=== PATIENT | female | born 1995 | race Caucasian/White ===

== ENCOUNTER 2019-05-29 13:05 | Emergency (ER) | payer MEDICAID, OTHER ==
--- NOTE | 2019-05-29 13:19 | EDM.PDOC ---
ED HPI GENERAL MEDICAL PROBLEM - General Chief Complaint: Upper Extremity Injury/Pain Stated Complaint: RIGHT WRIST INJURY Time Seen by Provider: 05/29/19 13:16 Source of Information: Reports: Patient History Limitations: Reports: No Limitations - History of Present Illness INITIAL COMMENTS - FREE TEXT/NARRATIVE: Patient's unfortunate 23-year-old obese female who presents with department today with complaint of right wrist pain. Patient reports she was in her normal state of health approximately 20 minutes prior to arrival when she slipped on a wet floor at work and fell backwards onto an outstretched hand. Since that time she has pain to her right first metacarpal and carpals pain is worse with range of motion or palpation improves with rest does not alleviate. Patient has no tenderness over her wrist or neurovascular is intact - Related Data Allergies Allergy/AdvReac Type Severity Reaction Status Date / Time adhesive Allergy Blisters Verified 05/29/19 13:19 benzocaine Allergy Blisters Verified 05/29/19 13:19 hydrocodone [From Vicodin] Allergy Vomiting Verified 05/29/19 13:19 iodine Allergy Vomiting Verified 05/29/19 13:19 morphine Allergy Itching Verified 05/29/19 13:19 promethazine [From Phenergan] Allergy Seizure Verified 05/29/19 13:19 Home Meds: Home Meds ARIPiprazole [Abilify] 15 mg PO DAILY 05/01/19 [History] Ondansetron [Zofran ODT] 4 mg PO Q6H #10 tab.dis 05/01/19 [Rx] Past Medical History - Past Health History Medical/Surgical History: Denies Medical/Surgical History Review of Systems - Review of Systems Review Of Systems: See Below Constitutional: Denies: Chills, Diaphoresis, Fever Musculoskeletal: Reports: Hand Pain, Joint Pain ED EXAM, GENERAL - Physical Exam Exam: See Below Exam Limited By: No Limitations General Appearance: Alert, WD/WN, Mild Distress Ears: Normal External Exam, Normal Canal, Hearing Grossly Normal, Normal TMs Throat/Mouth: Normal Inspection, Normal Lips, Normal Teeth, Normal Gums, Normal Oropharynx, Normal Voice, No Airway Compromise Head: Atraumatic, Normocephalic Neck: Normal Inspection, Supple, Non-Tender, Full Range of Motion Respiratory/Chest: No Respiratory Distress, Lungs Clear, Normal Breath Sounds, No Accessory Muscle Use, Chest Non-Tender Cardiovascular: Normal Peripheral Pulses, Regular Rate, Rhythm, No Edema, No Gallop, No JVD, No Murmur, No Rub GI/Abdominal: Normal Bowel Sounds, Soft, Non-Tender, No Organomegaly, No Distention, No Abnormal Bruit, No Mass Extremities: Normal Inspection, Other (Mild tenderness to right first metacarpal into the anatomical snuffbox, distal neurovascular is intact minimal swelling no ecchymosis no tenderness into the radial head) Neurological: Alert Skin Exam: Warm, Dry, No Rash Course - Vital Signs Last Recorded V/S: Last Vital Signs Temp 97.1 F 05/29/19 13:14 Pulse 81 05/29/19 13:14 Resp 14 05/29/19 13:14 BP 131/80 05/29/19 13:14 Pulse Ox 99 05/29/19 13:14 - Orders/Labs/Meds Orders: Active Orders 24 hr Category Date Time Status Wrist Comp Min 3V Rt [CR] Stat Exams 05/29/19 13:16 Ordered DME for Discharge [COMM] Stat Oth 05/29/19 13:31 Ordered - Re-Assessments/Exams Free Text/Narrative Re-Assessment/Exam: 05/29/19 13:32 Right wrist, interpreted by me NAD Departure - Departure Time of Disposition: 13:32 Disposition: Home, Self-Care 01 Clinical Impression: Right wrist sprain Qualifiers: Encounter type: initial encounter Qualified Code(s): S63.501A - Unspecified sprain of right wrist, initial encounter - Discharge Information Instructions: Wrist Sprain, Adult Referrals: PCP,None [Primary Care Provider] - Sonido Harrison MD [Physician] - Forms: ED Department Discharge, ED Return to Work/School Form Additional Instructions: Home, rest, ice, elevate Tylenol or Motrin for pain, return as needed for worsening condition Sepsis Event Note - Focused Exam Vital Signs: Vital Signs Temp Pulse Resp BP Pulse Ox 05/29/19 13:14 97.1 F 81 14 131/80 99 Date Exam was Performed: 05/29/19 Time Exam was Performed: 13:32 - My Orders Last 24 Hours: My Active Orders 05/29/19 13:16 Wrist Comp Min 3V Rt [CR] Stat 05/29/19 13:31 DME for Discharge [COMM] Stat - Assessment/Plan Last 24 Hours: My Active Orders 05/29/19 13:16 Wrist Comp Min 3V Rt [CR] Stat 05/29/19 13:31 DME for Discharge [COMM] Stat
--- NOTE | 2019-05-30 09:18 | CR ---
Right wrist: Five views of the right wrist were obtained which includes a navicular view. Joint spaces are preserved. No acute fracture, dislocation or other bony abnormality is seen. Impression: 1. No abnormality is appreciated on right wrist exam. Diagnostic code #1 This report was dictated in [place] Standard Time
== END 2019-05-29 13:42 | disposition home or self-care (01) ==
LOC: JD.ED 13:05
DX: S63.501A Unspecified sprain of right wrist, initial encounter (principal); E66.9 Obesity, unspecified; Z68.41 Body mass index [BMI] 40.0-44.9, adult; Z88.4 Allergy status to anesthetic agent; Z88.5 Allergy status to narcotic agent; Z88.8 Allergy status to other drugs, medicaments and biological substances; Z91.048 Other nonmedicinal substance allergy status; W01.0XXA Fall on same level from slipping, tripping and stumbling without subsequent striking against object, initial encounter; Y92.89 Other specified places as the place of occurrence of the external cause; Y99.0 Civilian activity done for income or pay
CPT/HCPCS: 73110-26-RT; 73110-RT; 99282; 99283-25

== ENCOUNTER 2019-09-03 13:38 | Emergency (ER) | payer MEDICAID, OTHER ==
[2019-09-03] MEDS ORDERED: Ketorolac 30 MG/ML SDV IVPUSH ONE (15:33)
--- NOTE | 2019-09-03 15:41 | EDM.PDOC ---
ED HPI GENERAL MEDICAL PROBLEM - General Chief Complaint: Abdominal Pain Stated Complaint: FEVER/ABD PAIN Time Seen by Provider: 09/03/19 14:49 Source of Information: Reports: Patient History Limitations: Reports: No Limitations - History of Present Illness INITIAL COMMENTS - FREE TEXT/NARRATIVE: Patient is a 24-year-old female who presents with complaints of sore throat, abdominal pain, low-grade fever, congestion, and one episode of vomiting. She states that the sore throat developed a week ago. It did resolve, however returned yesterday. She states that yesterday she had an upset stomach with "egg burps ". She vomited once last night, however she thinks it was related to the "egg burps ". She states that she had a low-grade temp of 100.1 yesterday, however but has not had any recurrence of temp since that time. She has had no further nausea or vomiting. She has had no diarrhea, however states that she is constipated. Denies any cough or shortness of breath. Patient did verbalize that she did have some dysuria prior to starting her period a couple weeks ago. The dysuria resolved shortly thereafter. Right Abdomen Pain Score (Numeric/FACES): 6 - Related Data Allergies Allergy/AdvReac Type Severity Reaction Status Date / Time adhesive Allergy Blisters Verified 05/29/19 13:19 benzocaine Allergy Blisters Verified 05/29/19 13:19 hydrocodone [From Vicodin] Allergy Vomiting Verified 05/29/19 13:19 iodine Allergy Vomiting Verified 05/29/19 13:19 morphine Allergy Itching Verified 05/29/19 13:19 promethazine [From Phenergan] Allergy Seizure Verified 05/29/19 13:19 Home Meds: Home Meds Benzonatate 200 mg PO TID PRN 09/03/19 [History] buPROPion HCl [Wellbutrin Xl] 300 mg PO DAILY 09/03/19 [History] guaiFENesin/Codeine Phosphate [Guaiatussin AC Liquid] 5 ml PO Q4HR PRN 09/03/19 [History] Past Medical History - Past Health History Medical/Surgical History: Denies Medical/Surgical History [employer] History: Reports: Musculoskeletal History: Reports: Fibromyalgia Neurological History: Reports: Other (See Below) Other Neuro History: pseudo seizure Psychiatric History: Reports: Bipolar, Depression Endocrine/Metabolic History: Reports: Obesity/BMI 30+ - Past Surgical History HEENT Surgical History: Reports: Oral Surgery GI Surgical History: Reports: Cholecystectomy Female Surgical History: Reports: Section Social & Family History - Family History Family Medical History: Noncontributory - Tobacco Use Smoking Status *Q: Current Every Day Smoker Years of Tobacco use: 7 Packs/Tins Daily: 0.3 - Caffeine Use Caffeine Use: Reports: Soda ED ROS GENERAL - Review of Systems Review Of Systems: Comprehensive ROS is negative, except as noted in HPI. ED EXAM, GI/ABD - Physical Exam Exam: See Below Exam Limited By: No Limitations General Appearance: Alert, WD/WN, No Apparent Distress Throat/Mouth: Normal Inspection, Normal Lips, Normal Teeth, Normal Gums, Normal Voice, No Airway Compromise, Other (Oropharynx slightly erythematous) Neck: Normal Inspection, Supple, Non-Tender, Full Range of Motion Respiratory/Chest: No Respiratory Distress, Lungs Clear, Normal Breath Sounds, No Accessory Muscle Use, Chest Non-Tender Cardiovascular: Normal Peripheral Pulses, Regular Rate, Rhythm, No Edema, No Gallop, No JVD, No Murmur, No Rub GI/Abdominal Exam: Normal Bowel Sounds, Soft, No Organomegaly, No Distention, No Abnormal Bruit, No Mass, Pelvis Stable, Tender (Right upper, right lower, periumbilical) Neurological: Alert, Oriented, CN II-XII Intact, Normal Cognition, Normal Gait, Normal Reflexes, No Motor/Sensory Deficits Psychiatric: Normal Affect, Normal Mood Skin Exam: Warm, Dry, Intact, Normal Color, No Rash Course - Vital Signs Last Recorded V/S: Last Vital Signs Temp 97.7 F 09/03/19 14:01 Pulse 78 09/03/19 14:01 Resp 16 09/03/19 14:01 BP 135/86 09/03/19 14:01 Pulse Ox 98 09/03/19 14:01 - Orders/Labs/Meds Orders: Active Orders 24 hr Category Date Time Status CULTURE STREP A CONFIRMATION [RM] Stat Lab 09/03/19 15:10 Results Rapid Strep w/culture conf [STREP SCRN A RAPID W CULT Lab 09/03/19 15:10 Results CONF] [RM] Stat Labs: Laboratory Tests 09/03/19 09/03/19 09/03/19 Range/Units 14:40 14:40 14:40 WBC 8.07 (3.98-10.04) K/mm3 RBC 5.09 (3.98-5.22) M/mm3 Hgb 14.6 (11.2-15.7) gm/dl Hct 45.2 H (34.1-44.9) % MCV 88.8 (79.4-94.8) fl MCH 28.7 (25.6-32.2) pg MCHC 32.3 (32.2-35.5) g/dl RDW Std Deviation 45.1 (36.4-46.3) fL Plt Count 465 H (182-369) K/mm3 MPV 9.5 (9.4-12.3) fl Neutrophils % (Manual) 69 H (40-60) % Band Neutrophils % 0 (0-10) % Lymphocytes % (Manual) 25 (20-40) % Atypical Lymphs % 0 % Monocytes % (Manual) 6 (2-10) % Eosinophils % (Manual) 0 L (0.7-5.8) % Basophils % (Manual) 0 L (0.1-1.2) Platelet Estimate Adequate Plt Morphology Comment Normal RBC Morph Comment Normal Sodium 141 (136-145) mEq/L Potassium 4.2 (3.5-5.1) mEq/L Chloride 107 (98-107) mEq/L Carbon Dioxide 24 (21-32) mEq/L Anion Gap 14.2 (5-15) BUN 13 (7-18) mg/dL Creatinine 0.9 (0.55-1.02) mg/dL Est Cr Clr Drug Dosing 83.23 mL/min Estimated GFR (MDRD) > 60 (>60) mL/min BUN/Creatinine Ratio 14.4 (14-18) Glucose 85 (74-106) mg/dL Calcium 9.4 (8.5-10.1) mg/dL Total Bilirubin 0.4 (0.2-1.0) mg/dL AST 17 (15-37) U/L ALT 35 (14-59) U/L Alkaline Phosphatase 77 (46-116) U/L C-Reactive Protein < 0.2 (<1.0) mg/dL Total Protein 7.8 (6.4-8.2) g/dl Albumin 3.9 (3.4-5.0) g/dl Globulin 3.9 gm/dL Albumin/Globulin Ratio 1.0 (1-2) HCG, Qual Negative (NEGATIVE) Urine Color (Yellow) Urine Appearance (Clear) Urine pH (5.0-8.0) Ur Specific [place] (1.005-1.030) Urine Protein (Negative) Urine Glucose (UA) (Negative) Urine Ketones (Negative) Urine Occult Blood (Negative) Urine Nitrite (Negative) Urine Bilirubin (Negative) Urine Urobilinogen (0.2-1.0) Ur Leukocyte Esterase (Negative) Urine RBC (0-5) /hpf Urine WBC (0-5) /hpf Ur Squamous Epith Cells (0-5) /hpf Urine Bacteria (FEW) /hpf Urine Mucus (FEW) /hpf 09/03/19 Range/Units 16:40 WBC (3.98-10.04) K/mm3 RBC (3.98-5.22) M/mm3 Hgb (11.2-15.7) gm/dl Hct (34.1-44.9) % MCV (79.4-94.8) fl MCH (25.6-32.2) pg MCHC (32.2-35.5) g/dl RDW Std Deviation (36.4-46.3) fL Plt Count (182-369) K/mm3 MPV (9.4-12.3) fl Neutrophils % (Manual) (40-60) % Band Neutrophils % (0-10) % Lymphocytes % (Manual) (20-40) % Atypical Lymphs % % Monocytes % (Manual) (2-10) % Eosinophils % (Manual) (0.7-5.8) % Basophils % (Manual) (0.1-1.2) Platelet Estimate Plt Morphology Comment RBC Morph Comment Sodium (136-145) mEq/L Potassium (3.5-5.1) mEq/L Chloride (98-107) mEq/L Carbon Dioxide (21-32) mEq/L Anion Gap (5-15) BUN (7-18) mg/dL Creatinine (0.55-1.02) mg/dL Est Cr Clr Drug Dosing mL/min Estimated GFR (MDRD) (>60) mL/min BUN/Creatinine Ratio (14-18) Glucose (74-106) mg/dL Calcium (8.5-10.1) mg/dL Total Bilirubin (0.2-1.0) mg/dL AST (15-37) U/L ALT (14-59) U/L Alkaline Phosphatase (46-116) U/L C-Reactive Protein (<1.0) mg/dL Total Protein (6.4-8.2) g/dl Albumin (3.4-5.0) g/dl Globulin gm/dL Albumin/Globulin Ratio (1-2) HCG, Qual (NEGATIVE) Urine Color Yellow (Yellow) Urine Appearance Clear (Clear) Urine pH 6.0 (5.0-8.0) Ur Specific [place] 1.025 (1.005-1.030) Urine Protein Negative (Negative) Urine Glucose (UA) Negative (Negative) Urine Ketones Negative (Negative) Urine Occult Blood Negative (Negative) Urine Nitrite Negative (Negative) Urine Bilirubin Negative (Negative) Urine Urobilinogen 0.2 (0.2-1.0) Ur Leukocyte Esterase Negative (Negative) Urine RBC Not seen (0-5) /hpf Urine WBC 0-5 (0-5) /hpf Ur Squamous Epith Cells 5-10 H (0-5) /hpf Urine Bacteria Not seen (FEW) /hpf Urine Mucus Not seen (FEW) /hpf Meds: Medications Discontinued Medications Generic Name Dose Route Start Last Admin Trade Name Freq PRN Reason Stop Dose Admin Sodium Chloride 1,000 mls @ 999 mls/hr 09/03/19 15:45 09/03/19 15:39 Normal Saline IV 999 mls/hr ASDIRECTED RODOLFO Administration Ketorolac Tromethamine 30 mg 09/03/19 15:33 09/03/19 15:39 Toradol IVPUSH 09/03/19 15:34 30 mg ONETIME ONE Administration Magnesium Citrate 296 ml 09/03/19 17:08 09/03/19 17:31 Citrate Of Magnesia PO 09/03/19 17:09 296 ml ONETIME ONE Administration - Re-Assessments/Exams Free Text/Narrative Re-Assessment/Exam: 09/03/19 17:11 Patient's work-up was grossly unremarkable. There is some increased stool throughout her colon which would correlate with her feeling constipated and may be contributing to her pain. Her WBCs were normal. CRP was normal. Electrolytes are normal. Urinalysis was negative for infection. She does feel better after a liter of fluids and the Toradol. Discussed the option of a CT scan and she is in agreement to defer this for now. She will go home with some magnesium citrate and a note for work. Discussed that if her symptoms do not improve in 24 hours or if she experiences any worsening symptoms, she should return. She is in agreement with this plan. Discharge instructions as documented. Departure - Departure Time of Disposition: 17:16 Disposition: Home, Self-Care 01 Condition: Fair Clinical Impression: Abdominal pain Qualifiers: Abdominal location: generalized Qualified Code(s): R10.84 - Generalized abdominal pain - Discharge Information *PRESCRIPTION DRUG MONITORING PROGRAM REVIEWED*: No *COPY OF PRESCRIPTION DRUG MONITORING REPORT IN PATIENT CHANDAN: No Instructions: Abdominal Pain, Adult, [id number] Referrals: Gracie Blount PA-C [Primary Care Provider] - Forms: ED Department Discharge, ED Return to Work/School Form Additional Instructions: You were seen in the emergency department today for abdominal pain. Your work- up included blood work, urinalysis, strep screen, and a x-ray of your abdomen. Your work-up was found to be normal, however, as we discussed, there is increased stool throughout your colon. This may be contributing to your pain. There are no signs in your work-up to suggest appendicitis at this time, however , as we discussed, if your symptoms do not improve over the next 24 hours or you experience any worsening symptoms, we would want you to return to the emergency department. You have been sent home with a bottle of magnesium citrate. Take this when you get home. This should produce a number of bowel movements some of which may be loose. Sepsis Event Note - Evaluation Sepsis Screening Result: No Definite Risk - Focused Exam Vital Signs: Vital Signs Temp Pulse Resp BP Pulse Ox 09/03/19 14:01 97.7 F 78 16 135/86 98 Date Exam was Performed: 09/03/19 Time Exam was Performed: 21:33 - My Orders Last 24 Hours: My Active Orders 09/03/19 15:10 CULTURE STREP A CONFIRMATION [RM] Stat Rapid Strep w/culture conf [STREP SCRN A RAPID W CULT CONF] [] Stat - Assessment/Plan Last 24 Hours: My Active Orders 09/03/19 15:10 CULTURE STREP A CONFIRMATION [] Stat Rapid Strep w/culture conf [STREP SCRN A RAPID W CULT CONF] [] Stat
[2019-09-03] MEDS ORDERED: Sodium Chloride 0.9% 1,000 ML IV SCH (15:45)
[2019-09-03] MEDS ORDERED: Magnesium Citrate Solution 296 ML Bottle PO ONE (17:08)
--- NOTE | 2019-09-03 17:15 | CR ---
Abdomen: Supine and upright views the abdomen were obtained. Scattered gas is noted within nondilated small bowel. Scattered gas and stool is noted within the colon. Findings at this point appear nonobstructive and within normal limits. No free air is seen. Priors cholecystectomy is noted. Bony structures are within normal limits for the patient's age. Impression: 1. Nothing acute is seen on 2 view abdominal x-ray. Diagnostic code #2 Study was dictated in MDT
== END 2019-09-03 17:35 | disposition home or self-care (01) ==
LOC: JD.ED 13:38
DX: R10.84 Generalized abdominal pain (principal); E66.9 Obesity, unspecified; Z68.39 Body mass index [BMI] 39.0-39.9, adult; F17.210 Nicotine dependence, cigarettes, uncomplicated; F31.9 Bipolar disorder, unspecified; Z91.09 Other allergy status, other than to drugs and biological substances; Z88.5 Allergy status to narcotic agent; Z88.8 Allergy status to other drugs, medicaments and biological substances; Z79.899 Other long term (current) drug therapy
CPT/HCPCS: 36415; 74019; 80053; 81001; 84703; 85007; 85027; 86140; 87081; 87430; 96361; 96374; 99284; A9270; J1885; J7030; 99283

== ENCOUNTER 2019-09-06 14:11 | Emergency (ER) | payer MEDICAID, OTHER ==
--- NOTE | 2019-09-06 15:43 | EDM.PDOC ---
ED HPI GENERAL MEDICAL PROBLEM - General Chief Complaint: Gastrointestinal Problem Stated Complaint: RECTAL BLEEDING Time Seen by Provider: 09/06/19 14:37 Source of Information: Reports: Patient History Limitations: Reports: No Limitations - History of Present Illness INITIAL COMMENTS - FREE TEXT/NARRATIVE: Ms. Perez is a very pleasant 24-year-old woman with a past medical history significant for a remote history of peptic ulcer disease, depression, bipolar affective disorder, fibromyalgia, pseudoseizures, and both internal and external hemorrhoids as determined by prior colonoscopies, who, medical records indicate, was seen in this ED on 09/03/2019 for a variety of gastrointestinal issues, including constipation. She was directed to take magnesium citrate. She tells me that she drank less than half of a bottle on Thursday night, which resulted in diarrhea. She now returns to the ED after developing the diarrhea and passing clots on Thursday night, 09/04/2019. She states that her stool is light brown, but there are some black spots on it along with some bright red drops of blood. She states that she is rectal pain, and that she has been feeling lethargic and generally ill. She states that she has been feeling lightheaded when upright, today. She denies recent fever, chills, cough, dyspnea, chest pain, palpitations, urinary symptoms, recent weight gain or weight loss, recent joint aches, headaches, or rashes. Here in the ED, the patient is found to be hemodynamically stable, afebrile, saturating 100% on room air. The patient's PCP is BRENDA Cerda. She does not recall the name of her Psychiatrist. She did not receive an influenza vaccine this season, but agreed to receive one here today. Rectal Pain Score (Numeric/FACES): 4 - Related Data Allergies Allergy/AdvReac Type Severity Reaction Status Date / Time adhesive Allergy Blisters Verified 09/06/19 14:38 benzocaine Allergy Blisters Verified 09/06/19 14:38 hydrocodone [From Vicodin] Allergy Vomiting Verified 09/06/19 14:38 iodine Allergy Vomiting Verified 09/06/19 14:38 morphine Allergy Itching Verified 09/06/19 14:38 promethazine [From Phenergan] Allergy Seizure Verified 09/06/19 14:38 Home Meds: Home Meds buPROPion HCl [Wellbutrin Xl] 300 mg PO DAILY 09/03/19 [History] traZODone HCl [Trazodone HCl] 1 tab PO BEDTIME 09/06/19 [History] Past Medical History Gastrointestinal History: Reports: Hemorrhoids (both internal and external), PUD (remote) Psychiatric History: Reports: Bipolar, Depression, Other (See Below) ( Fibromyalgia, pseudoseizures) Endocrine/Metabolic History: Reports: Obesity/BMI 30+ - Past Surgical History HEENT Surgical History: Reports: Oral Surgery (wisdom teeth extraction) GI Surgical History: Reports: Cholecystectomy (around 2010 or 2011), Colonoscopy (x about 4), EGD (x about 4) Female Surgical History: Reports: Section (x 1) Social & Family History - Family History Family Medical History: Noncontributory - Tobacco Use Smoking Status *Q: Former Smoker Tobacco Use Within Last Twelve Months: Vaping (nicotine) Years of Tobacco use: 3 Packs/Tins Daily: 0.5 Month/Year Tobacco Last Used: Quit 2015 - Caffeine Use Caffeine Use: Reports: None - Alcohol Use Alcohol Use History: No - Recreational Drug Use Recreational Drug Use: Yes Drug Use in Last 12 Months: Yes Recreational Drug Type: Reports: Marijuana/Hashish (last smoked Mar 2019) - Living Situation & Occupation Living situation: Reports: Single, with Significant Other (Fianc), with Family (Son) Occupation: Employed ([employer]) ED ROS GENERAL - Review of Systems Review Of Systems: Comprehensive ROS is negative, except as noted in HPI. ED EXAM, GI/ABD - Physical Exam Exam: See Below Exam Limited By: No Limitations General Appearance: Alert, WD/WN, No Apparent Distress Eyes: Bilateral: Normal Appearance, EOMI Ears: Normal External Exam, Hearing Grossly Normal Nose: Normal Inspection Throat/Mouth: Normal Inspection, Normal Lips, Normal Voice, No Airway Compromise Head: Atraumatic, Normocephalic Neck: Normal Inspection, Full Range of Motion Respiratory/Chest: No Respiratory Distress, Lungs Clear, Normal Breath Sounds, No Accessory Muscle Use Cardiovascular: Normal Peripheral Pulses, Regular Rate, Rhythm, No Edema, No Gallop, No JVD, No Murmur, No Rub GI/Abdominal Exam: Normal Bowel Sounds, Soft, Non-Tender, No Organomegaly, No Distention, No Abnormal Bruit, No Mass (Female) Exam: Deferred Rectal (Female) Exam: Normal Rectal Tone, Bloody Stool (scant - no stool in rectum), Heme + Stool, Hemorrhoids (bilateral small) Back Exam: Normal Inspection, Full Range of Motion, NT Extremities: Normal Inspection, Normal Range of Motion, No Pedal Edema, Normal Capillary Refill Neurological: Alert, Oriented, Normal Cognition, No Motor/Sensory Deficits Psychiatric: Normal Affect Skin Exam: Warm, Dry, Intact, Normal Color, No Rash Course - Vital Signs Last Recorded V/S: Last Vital Signs Temp 36.6 C 09/06/19 14:34 Pulse 87 09/06/19 14:34 Resp 18 09/06/19 18:05 BP 122/75 09/06/19 18:05 Pulse Ox 100 09/06/19 18:05 Orthostatic Blood Pressure [ 117/86 Standing] Orthostatic Blood Pressure [ 126/67 Supine] - Orders/Labs/Meds Labs: Laboratory Tests 09/06/19 09/06/19 Range/Units 15:52 15:52 WBC 9.26 (3.98-10.04) K/mm3 RBC 4.68 (3.98-5.22) M/mm3 Hgb 13.4 (11.2-15.7) gm/dl Hct 41.4 (34.1-44.9) % MCV 88.5 (79.4-94.8) fl MCH 28.6 (25.6-32.2) pg MCHC 32.4 (32.2-35.5) g/dl RDW Std Deviation 44.1 (36.4-46.3) fL Plt Count 428 H (182-369) K/mm3 MPV 9.4 (9.4-12.3) fl Neutrophils % (Manual) 58 (40-60) % Band Neutrophils % 0 (0-10) % Lymphocytes % (Manual) 35 (20-40) % Atypical Lymphs % 1 % Monocytes % (Manual) 6 (2-10) % Eosinophils % (Manual) 0 L (0.7-5.8) % Basophils % (Manual) 0 L (0.1-1.2) Platelet Estimate Adequate RBC Morph Comment Normal Sodium 144 (136-145) mEq/L Potassium 4.2 (3.5-5.1) mEq/L Chloride 108 H (98-107) mEq/L Carbon Dioxide 24 (21-32) mEq/L Anion Gap 16.2 H (5-15) BUN 11 (7-18) mg/dL Creatinine 0.9 (0.55-1.02) mg/dL Est Cr Clr Drug Dosing TNP Estimated GFR (MDRD) > 60 (>60) mL/min BUN/Creatinine Ratio 12.2 L (14-18) Glucose 95 (74-106) mg/dL Calcium 9.3 (8.5-10.1) mg/dL Magnesium 1.9 (1.8-2.4) mg/dl Total Bilirubin 0.2 (0.2-1.0) mg/dL AST 23 (15-37) U/L ALT 50 (14-59) U/L Alkaline Phosphatase 78 (46-116) U/L Total Protein 7.3 (6.4-8.2) g/dl Albumin 3.7 (3.4-5.0) g/dl Globulin 3.6 gm/dL Albumin/Globulin Ratio 1.0 (1-2) Meds: Medications Discontinued Medications Generic Name Dose Route Start Last Admin Trade Name Freq PRN Reason Stop Dose Admin Influenza Virus Vaccine 60 mcg 09/06/19 16:00 09/06/19 16:24 Fluzone Quad [id number] Syringe IM 09/06/19 16:01 60 mcg .ONCE ONE Administration - Re-Assessments/Exams Free Text/Narrative Re-Assessment/Exam: 09/06/19 15:41 On rectal examination, the patient has bilateral very small nonthrombosed hemorrhoids. A scant amount of red stool was on the finger, which is heme positive. I have therefore ordered orthostatics and some blood work. 09/06/19 15:51 The patient is not orthostatic. 09/06/19 17:41 Test results discussed with the patient. As above, the patient is not orthostatic, and she is not anemic. Based on the color of her lower GI bleed, I suspect that her bleeding is from an internal hemorrhoid, especially since she has a history of internal hemorrhoids, but the only way to be certain is via sigmoidoscopy or colonoscopy. For that, I will refer her to the Surgeon. Departure - Departure Time of Disposition: 17:42 Disposition: Home, Self-Care 01 Condition: Good Clinical Impression: Lower GI bleed - Discharge Information *PRESCRIPTION DRUG MONITORING PROGRAM REVIEWED*: Not Applicable *COPY OF PRESCRIPTION DRUG MONITORING REPORT IN PATIENT CHANDAN: Not Applicable Instructions: Rectal Bleeding, [id number] Referrals: Gracie Blount PA-C [Primary Care Provider] - Evangelist Hammond MD [Physician] - Forms: ED Department Discharge Additional Instructions: You were seen in the emergency room after developing blood mixed with your stool. Work-up in the ER included blood work and positional blood pressure checks. Your entire work-up was unremarkable. You are not anemic. Your blood pressure maintained itself between lying and standing. The exact cause of your lower GI bleed is not known. For that, you will need to undergo a sigmoidoscopy or colonoscopy. Please follow-up with the surgeon Dr. Evangelist Hammond at the next available appointment for further evaluation. If any other problems, please do not hesitate to return to the ER. Sepsis Event Note - Evaluation Sepsis Screening Result: No Definite Risk - Focused Exam Date Exam was Performed: 09/07/19 Time Exam was Performed: 20:33
[2019-09-06] MEDS ORDERED: FLU Vacc QS2019-20(6MOS+)/PF 60 MCG/0.5 ML SYRINGE IM ONE (16:00)
== END 2019-09-06 18:05 | disposition home or self-care (01) ==
LOC: JD.ED 14:11
DX: K92.2 Gastrointestinal hemorrhage, unspecified (principal); Z23 Encounter for immunization; F32.9 Major depressive disorder, single episode, unspecified; E66.9 Obesity, unspecified; Z87.891 Personal history of nicotine dependence; Z88.8 Allergy status to other drugs, medicaments and biological substances; Z91.048 Other nonmedicinal substance allergy status; Z88.5 Allergy status to narcotic agent; Z79.899 Other long term (current) drug therapy
CPT/HCPCS: 36415; 80053; 83735; 85007; 85027; 90686; 99283; 99283-25; G0008

== ENCOUNTER 2019-10-21 17:35 | Emergency (ER) | payer MEDICAID ==
--- NOTE | 2019-10-21 18:14 | EDM.PDOC ---
ED HPI GENERAL MEDICAL PROBLEM - General Chief Complaint: Gastrointestinal Problem Stated Complaint: RECTAL BLEEDING Time Seen by Provider: 10/21/19 17:53 Source of Information: Reports: Patient, Old Records, RN Notes Reviewed History Limitations: Reports: No Limitations - History of Present Illness INITIAL COMMENTS - FREE TEXT/NARRATIVE: Patient is a 24-year-old female who presents to the ED for rectal bleeding. Patient notes she has a history of external and internal hemorrhoids. She was seen in this ER roughly a month ago for this, and did follow-up with the surgeon , and had a procedure done by Dr. Hammond on September 13. Patient notes that last night she started having a "major flare" of her hemorrhoids. She states that she went to the bathroom, and when she wiped she noticed some clot-like material with dark-colored blood noted on the toilet paper as well. She thought maybe she was having her period or starting her period, this was not the case. Patient states that she is not having any dizziness or lightheadedness with standing. Patient states that she did try to get a hold of Dr. Hammond, but his nurse did not call her back as this was 4:30 PM on a Thursday night. Patient is denying any other sort of sick-like symptoms, fever/ chills, cough/shortness of breath, chest pain, nausea/vomiting/diarrhea. Patient notes that she has had her gallbladder taken out, still has issues with chronic loose stools and/or diarrhea at times. She has tried to change dietary and lifestyle changes as well, and states these are going well for her. - Related Data Allergies Allergy/AdvReac Type Severity Reaction Status Date / Time adhesive Allergy Blisters Verified 09/06/19 14:38 benzocaine Allergy Blisters Verified 09/06/19 14:38 hydrocodone [From Vicodin] Allergy Vomiting Verified 09/06/19 14:38 iodine Allergy Vomiting Verified 09/06/19 14:38 latex Allergy Hives Verified 10/21/19 17:58 morphine Allergy Itching Verified 09/06/19 14:38 promethazine [From Phenergan] Allergy Seizure Verified 09/06/19 14:38 Home Meds: Home Meds buPROPion HCL [Wellbutrin Xl] 300 mg PO DAILY 09/03/19 [History] Hydrocortisone Acetate [Anusol-Hc] 25 mg RC BID #28 supp.rect 10/21/19 [Rx] Hydrocortisone [Anusol-Hc] 30 gm TP BID 5 Days #1 tube 10/21/19 [Rx] Past Medical History Gastrointestinal History: Reports: Hemorrhoids (internal and external), PUD LEDGE MAN History: Reports: Musculoskeletal History: Reports: Fibromyalgia Neurological History: Reports: Other (See Below) Other Neuro History: pseudo seizure Psychiatric History: Reports: Bipolar, Depression Endocrine/Metabolic History: Reports: Obesity/BMI 30+ - Past Surgical History HEENT Surgical History: Reports: Oral Surgery GI Surgical History: Reports: Cholecystectomy, Colonoscopy, EGD Female Surgical History: Reports: Section Social & Family History - Family History Family Medical History: Noncontributory - Tobacco Use Smoking Status *Q: Former Smoker Used Tobacco, but Quit: Yes Month/Year Tobacco Last Used: 2019 - Caffeine Use Caffeine Use: Reports: None - Living Situation & Occupation Living situation: Reports: Single, with Significant Other (Fianc), with Family (Son) Occupation: Employed ([employer]) ED ROS GENERAL - Review of Systems Review Of Systems: Comprehensive ROS is negative, except as noted in HPI. ED EXAM, GI/ABD - Physical Exam Exam: See Below Exam Limited By: No Limitations General Appearance: Alert, WD/WN, No Apparent Distress Eyes: Bilateral: Normal Appearance Respiratory/Chest: No Respiratory Distress, Lungs Clear, Normal Breath Sounds, No Accessory Muscle Use, Chest Non-Tender Cardiovascular: Normal Peripheral Pulses, Regular Rate, Rhythm, No Murmur GI/Abdominal Exam: Normal Bowel Sounds, Soft, Non-Tender, No Distention, No Mass Rectal (Female) Exam: Deferred, Bloody Stool (reported per patient), Hemorrhoids (few external and also internal hemorrhoids, noted by patient) Extremities: Normal Inspection, Normal Capillary Refill Neurological: Alert, Oriented, Normal Cognition, No Motor/Sensory Deficits Psychiatric: Normal Affect, Normal Mood Skin Exam: Warm, Dry, Intact, Normal Color, No Rash Course - Vital Signs Last Recorded V/S: Last Vital Signs Temp 97.4 F 10/21/19 17:53 Pulse 78 10/21/19 17:53 Resp 16 10/21/19 17:53 BP 137/89 10/21/19 17:53 Pulse Ox 100 10/21/19 17:53 - Orders/Labs/Meds Orders: Active Orders 24 hr Category Date Time Status CBC WITH AUTO DIFF [HEME] Stat Lab 10/21/19 17:58 Ordered Labs: Laboratory Tests 10/21/19 10/21/19 Range/Units 18:27 18:27 WBC 10.91 H (3.98-10.04) K/mm3 RBC 4.79 (3.98-5.22) M/mm3 Hgb 13.9 (11.2-15.7) gm/dl Hct 42.3 (34.1-44.9) % MCV 88.3 (79.4-94.8) fl MCH 29.0 (25.6-32.2) pg MCHC 32.9 (32.2-35.5) g/dl RDW Std Deviation 45.0 (36.4-46.3) fL Plt Count 442 H (182-369) K/mm3 MPV 9.5 (9.4-12.3) fl Neut % (Auto) 67.8 (34.0-71.1) % Lymph % (Auto) 25.2 (19.3-51.7) % [place] % (Auto) 6.0 (4.7-12.5) % Eos % (Auto) 0.5 L (0.7-5.8) Baso % (Auto) 0.3 (0.1-1.2) % Neut # (Auto) 7.41 H (1.56-6.13) K/mm3 Lymph # (Auto) 2.75 (1.18-3.74) K/mm3 [place] # (Auto) 0.65 H (0.24-0.36) K/mm3 Eos # (Auto) 0.05 (0.04-0.36) K/mm3 Baso # (Auto) 0.03 (0.01-0.08) K/mm3 Sodium 141 (136-145) mEq/L Potassium 4.0 (3.5-5.1) mEq/L Chloride 104 (98-107) mEq/L Carbon Dioxide 24 (21-32) mEq/L Anion Gap 17.0 H (5-15) BUN 15 (7-18) mg/dL Creatinine 0.8 (0.55-1.02) mg/dL Est Cr Clr Drug Dosing 93.64 mL/min Estimated GFR (MDRD) > 60 (>60) mL/min BUN/Creatinine Ratio 18.8 H (14-18) Glucose 83 (74-106) mg/dL Calcium 8.9 (8.5-10.1) mg/dL Total Bilirubin 0.3 (0.2-1.0) mg/dL AST 11 L (15-37) U/L ALT 31 (14-59) U/L Alkaline Phosphatase 73 (46-116) U/L Total Protein 7.7 (6.4-8.2) g/dl Albumin 3.8 (3.4-5.0) g/dl Globulin 3.9 gm/dL Albumin/Globulin Ratio 1.0 (1-2) - Re-Assessments/Exams Free Text/Narrative Re-Assessment/Exam: 10/21/19 18:15 Patient presents to the ED for the evaluation of her rectal bleeding secondary to hemorrhoids. Will obtain CBC and CMP to make sure she has no sign of anemia , but will likely discharge her home with Anusol suppositories and hydrocortisone cream to help calm down both the external and internal hemorrhoids. Patient is okay with this plan at this time. 10/21/19 19:00 Labs have resulted, patient is not anemic and there are no other worrisome abnormalities noted on the metabolic panel. Patient will be discharged home with general recommendations and medicines noted above. Departure - Departure Time of Disposition: 19:00 Disposition: Home, Self-Care 01 Condition: Good Clinical Impression: Rectal bleeding, Internal and external bleeding hemorrhoids - Discharge Information *PRESCRIPTION DRUG MONITORING PROGRAM REVIEWED*: No *COPY OF PRESCRIPTION DRUG MONITORING REPORT IN PATIENT CHANDAN: No Prescriptions: Hydrocortisone [Anusol-Hc] 30 gm TP BID 5 Days #1 tube Hydrocortisone Acetate [Anusol-Hc] 25 mg RC BID #28 supp.rect Instructions: Hemorrhoids Referrals: Gracie Blount PA-C [Primary Care Provider] - Forms: ED Department Discharge Additional Instructions: You were evaluated in the ED for your rectal bleeding secondary to your hemorrhoids. You did have some labs drawn today, and this demonstrated no acute abnormalities , you are not anemic at today's visit. You were given a prescription for Anusol suppositories, and Anusol cream. Please use 1 suppository inserted into rectum 2 times a day to help with the internal hemorrhoids, and use the cream to the rectum 2 times a day to help with the external hemorrhoids. Recommend you follow-up with your surgeon on Thursday, for follow-up sometime early next week. Please return to the ER at any time if symptoms change or worsen. Sepsis Event Note - Evaluation Sepsis Screening Result: No Definite Risk - Focused Exam Vital Signs: Vital Signs Temp Pulse Resp BP Pulse Ox 10/21/19 17:53 97.4 F 78 16 137/89 100 Date Exam was Performed: 10/21/19 Time Exam was Performed: 19:00 - My Orders Last 24 Hours: My Active Orders 10/21/19 17:58 CBC WITH AUTO DIFF [HEME] Stat - Assessment/Plan Last 24 Hours: My Active Orders 10/21/19 17:58 CBC WITH AUTO DIFF [HEME] Stat
== END 2019-10-21 19:15 | disposition home or self-care (01) ==
LOC: JD.ED 17:35
DX: K64.4 Residual hemorrhoidal skin tags (principal); K64.8 Other hemorrhoids; K62.5 Hemorrhage of anus and rectum; F31.9 Bipolar disorder, unspecified; Z87.891 Personal history of nicotine dependence; E66.9 Obesity, unspecified; Z68.39 Body mass index [BMI] 39.0-39.9, adult; Z91.048 Other nonmedicinal substance allergy status; Z88.5 Allergy status to narcotic agent; Z88.8 Allergy status to other drugs, medicaments and biological substances; Z88.6 Allergy status to analgesic agent; Z91.040 Latex allergy status; Z91.09 Other allergy status, other than to drugs and biological substances
CPT/HCPCS: 36415; 80053; 85025; 99283

== ENCOUNTER 2019-11-03 12:00 | Emergency (ER) | payer MEDICAID ==
--- NOTE | 2019-11-03 12:49 | EDM.PDOC ---
ED HPI GENERAL MEDICAL PROBLEM - General Chief Complaint: Headache Stated Complaint: HEADACHE FOR 6 HRS Time Seen by Provider: 11/03/19 12:39 - History of Present Illness INITIAL COMMENTS - FREE TEXT/NARRATIVE: 24-year-old female presents the emergency room with a headache. This headache started 6 or 7 hours ago basically she awoke with it. She describes some neck tightness and has pain above her eyes that radiate back to her neck. The patient fell a couple of days ago landing on her right side jerked her neck pretty hard. She is not had any fevers or chills however did not feel well last night. The patient has had migraines in the past this feels much like they have in the past however this headache is worse. Patient has not noticed any extremity weakness no numbness or tingling or changes in neurologic status. The patient does not think she is however her period was very light and about a week late about a week ago. Treatments YACHT RIGGER: Reports: Other (see below) Other Treatments YACHT RIGGER: none Headache Pain Score (Numeric/FACES): 9 - Related Data Allergies Allergy/AdvReac Type Severity Reaction Status Date / Time adhesive Allergy Severe Blisters Verified 11/03/19 12:13 benzocaine Allergy Severe Blisters Verified 11/03/19 12:13 hydrocodone [From Vicodin] Allergy Severe Vomiting Verified 11/03/19 12:13 iodine Allergy Severe Vomiting Verified 11/03/19 12:13 latex Allergy Severe Hives Verified 11/03/19 12:13 morphine Allergy Severe Itching Verified 11/03/19 12:13 promethazine [From Phenergan] Allergy Severe Seizure Verified 11/03/19 12:13 nsaids Allergy Severe stoamch Uncoded 11/03/19 13:04 issues Home Meds: Home Meds buPROPion HCL [Wellbutrin Xl] 300 mg PO DAILY 09/03/19 [History] Past Medical History - Past Health History Medical/Surgical History: Denies Medical/Surgical History Gastrointestinal History: Reports: Hemorrhoids, PUD 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: Musculoskeletal History: Reports: Fibromyalgia Neurological History: Reports: Other (See Below) Other Neuro History: pseudo seizure Psychiatric History: Reports: Bipolar, Depression Endocrine/Metabolic History: Reports: Obesity/BMI 30+ - Past Surgical History HEENT Surgical History: Reports: Oral Surgery GI Surgical History: Reports: Cholecystectomy, Colonoscopy, EGD Female Surgical History: Reports: Section Social & Family History - Family History Family Medical History: Noncontributory - Tobacco Use Smoking Status *Q: Former Smoker Used Tobacco, but Quit: Yes Month/Year Tobacco Last Used: 2019 - Caffeine Use Caffeine Use: Reports: None - Recreational Drug Use Recreational Drug Use: Yes Recreational Drug Type: Reports: Marijuana/Hashish Other Recreational Drug Type: last used Mar 10 2019 - Living Situation & Occupation Living situation: Reports: Single, with Significant Other (Fianc�), with Family (Son) Occupation: Employed ([employer]) ED ROS GENERAL - Review of Systems Review Of Systems: See Below Constitutional: Reports: No Symptoms HEENT: Reports: Other (She has some photophobia) Respiratory: Reports: No Symptoms Cardiovascular: Reports: No Symptoms Endocrine: Reports: No Symptoms GI/Abdominal: Reports: Nausea, Vomiting. Denies: Abdominal Pain, Constipation, Diarrhea : Reports: No Symptoms Musculoskeletal: Reports: No Symptoms Neurological: Reports: Headache. Denies: Confusion, Dizziness, Pre-Existing Deficit, Tremors, Change in Speech, Gait Disturbance Psychiatric: Reports: No Symptoms Hematologic/Lymphatic: Reports: No Symptoms Immunologic: Reports: No Symptoms - Physical Exam Exam: See Below Exam Limited By: No Limitations General Appearance: Alert, No Apparent Distress Eye Exam: Bilateral Eye: EOMI, Normal Inspection, PERRL Ears: Normal External Exam, Normal Canal, Hearing Grossly Normal, Normal TMs Nose: Normal Inspection, Normal Mucosa, No Blood Throat/Mouth: Normal Inspection, Normal Lips, Normal Teeth, Normal Gums, Normal Oropharynx, Normal Voice, No Airway Compromise Head Exam: Atraumatic, Normocephalic Neck: Normal Inspection, Supple, Other (Patient has significant paraspinous muscle tenderness bilaterally with significant discomfort at the insertion of the base of the skull no nuchal rigidity). No: Lymphadenopathy (R), Tender Midline Respiratory/Chest: No Respiratory Distress, Lungs Clear, Normal Breath Sounds Cardiovascular: Regular Rate, Rhythm, No Edema, No Murmur GI/Abdominal: Normal Bowel Sounds, Soft, Non-Tender Neuro Exam (Abbreviated): Other (Cranial nerves II through XII grossly intact all muscle groups the upper and lower extremities are equal and appropriate bilaterally deep tendon reflexes at the brachioradialis and patella tendons are equal bilaterally. Cerebellar testing is entirely within normal limits with [id number] and standing on one leg dragging the inside of the weightbearing leg with a non weightbearing leg) Course - Vital Signs Last Recorded V/S: Last Vital Signs Temp 36.4 C 11/03/19 12:18 Pulse 89 11/03/19 12:18 Resp 20 11/03/19 12:18 BP 120/79 11/03/19 12:18 Pulse Ox 97 11/03/19 12:18 - Orders/Labs/Meds Labs: Laboratory Tests 11/03/19 Range/Units 13:08 HCG, Qual Negative (NEGATIVE) Meds: Medications Discontinued Medications Generic Name Dose Route Start Last Admin Trade Name Jamarq PRN Reason Stop Dose Admin Diphenhydramine HCl 50 mg 11/03/19 12:54 11/03/19 13:09 Benadryl IVPUSH 11/03/19 12:55 50 mg ONETIME ONE Administration Lactated Ringer's 1,000 mls @ 999 mls/hr 11/03/19 12:54 11/03/19 13:10 Ringers, Lactated IV 11/03/19 13:54 999 mls/hr .BOLUS ONE Administration Ketorolac Tromethamine 30 mg 11/03/19 12:54 11/03/19 13:05 Toradol IVPUSH 11/03/19 12:55 Not Given ONETIME ONE Ketorolac Tromethamine 30 mg 11/03/19 14:22 11/03/19 14:45 Toradol IVPUSH 11/03/19 14:23 30 mg ONETIME ONE Administration Ondansetron HCl 4 mg 11/03/19 12:54 11/03/19 13:09 Zofran IVPUSH 11/03/19 12:55 4 mg ONETIME ONE Administration - Re-Assessments/Exams Free Text/Narrative Re-Assessment/Exam: 11/03/19 13:07 At this point the patient has a normal neurologic exam no nuchal rigidity will proceed with headache treatment however will not give Toradol just yet until we confirm that her hCG is negative. I discussed the treatment plan with the patient and she agrees with not pursuing a more aggressive work-up at this point. 11/03/19 15:20 Received Toradol about 30 minutes ago the patient was sleeping when I went into the exam room she is feeling much better. I will discharge her home she understands in no uncertain terms she needs to go home and sleep. It was noted in the patient's chart that she has an allergy to nonsteroidals however when I discussed this with her she gets stomach upset with Motrin. So with discussion with the patient we did discuss using Toradol one-time dose and the patient agreed to this. She seems to have tolerated this quite well. Departure - Departure Time of Disposition: 15:20 Disposition: Home, Self-Care 01 Clinical Impression: Tension-type headache, Migraine - Discharge Information Referrals: Gracie Blount PA-C [Primary Care Provider] - Forms: ED Department Discharge Additional Instructions: Return to the emergency room with any questions or problems. Go straight home and get some sleep. Sepsis Event Note - Evaluation Sepsis Screening Result: No Definite Risk - Focused Exam Vital Signs: Vital Signs Temp Pulse Resp BP Pulse Ox 11/03/19 12:18 36.4 C 89 20 120/79 97 Date Exam was Performed: 11/03/19 Time Exam was Performed: 15:24
[2019-11-03] MEDS ORDERED: Lactated Ringers 1,000 ML IV ONE (12:54)
[2019-11-03] MEDS ORDERED: Ondansetron 4 MG/2 ML SDV IVPUSH ONE (12:54)
[2019-11-03] MEDS ORDERED: Ketorolac 30 MG/ML SDV IVPUSH ONE ×2 (12:54→14:22)
[2019-11-03] MEDS ORDERED: diphenhydrAMINE 50 MG/ML SDV IVPUSH ONE (12:54)
== END 2019-11-03 15:30 | disposition home or self-care (01) ==
LOC: JD.ED 12:00
DX: G44.209 Tension-type headache, unspecified, not intractable (principal); G43.909 Migraine, unspecified, not intractable, without status migrainosus; R11.2 Nausea with vomiting, unspecified; F31.9 Bipolar disorder, unspecified; E66.9 Obesity, unspecified; Z91.048 Other nonmedicinal substance allergy status; Z91.040 Latex allergy status; Z88.5 Allergy status to narcotic agent; Z88.8 Allergy status to other drugs, medicaments and biological substances; Z88.6 Allergy status to analgesic agent; Z79.899 Other long term (current) drug therapy; Z87.891 Personal history of nicotine dependence; Z68.39 Body mass index [BMI] 39.0-39.9, adult
CPT/HCPCS: 36415; 84703; 96361; 96374; 96375; 99283; J1200; J1885; J2405; J7120

== ENCOUNTER 2019-11-04 15:11 | Emergency (ER) | payer MEDICAID ==
--- NOTE | 2019-11-04 15:56 | EDM.PDOC ---
ED HPI GENERAL MEDICAL PROBLEM - General Chief Complaint: Headache Stated Complaint: MIGRAINE IS NOT BETTER Time Seen by Provider: 11/04/19 15:54 - History of Present Illness INITIAL COMMENTS - FREE TEXT/NARRATIVE: 24-year-old female returns emergency room with continued headache. Patient was seen here yesterday afternoon by me thought to have a mixed headache muscle tension and with some migrainous tendencies. Now she is coming in with increasing nausea vomiting and she has had some diarrhea as well. Her neck continues to hurt. And she is nauseated. Her photophobia is somewhat better. She denies any fevers or chills. At work today she became quite lightheaded. And then she decided she better get rechecked. Yesterday the patient received IV Toradol after getting Zofran Benadryl and a liter of LR. Headache Pain Score (Numeric/FACES): 9 - Related Data Allergies Allergy/AdvReac Type Severity Reaction Status Date / Time adhesive Allergy Severe Blisters Verified 11/03/19 12:13 benzocaine Allergy Severe Blisters Verified 11/03/19 12:13 hydrocodone [From Vicodin] Allergy Severe Vomiting Verified 11/03/19 12:13 iodine Allergy Severe Vomiting Verified 11/03/19 12:13 latex Allergy Severe Hives Verified 11/03/19 12:13 morphine Allergy Severe Itching Verified 11/03/19 12:13 promethazine [From Phenergan] Allergy Severe Seizure Verified 11/03/19 12:13 nsaids Allergy Severe stoamch Uncoded 11/04/19 15:27 issues Home Meds: Home Meds buPROPion HCL [Wellbutrin Xl] 300 mg PO DAILY 09/03/19 [History] LORazepam [Ativan] 1 mg PO Q12H PRN #6 tablet 11/04/19 [Rx] Ondansetron [Zofran ODT] 4 mg PO Q6H PRN #12 tab.dis 11/04/19 [Rx] Past Medical History - Past Health History Medical/Surgical History: Denies Medical/Surgical History Gastrointestinal History: Reports: Hemorrhoids, PUD 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: Musculoskeletal History: Reports: Fibromyalgia Neurological History: Reports: Other (See Below) Other Neuro History: pseudo seizure Psychiatric History: Reports: Bipolar, Depression Endocrine/Metabolic History: Reports: Obesity/BMI 30+ - Past Surgical History HEENT Surgical History: Reports: Oral Surgery GI Surgical History: Reports: Cholecystectomy, Colonoscopy, EGD Female Surgical History: Reports: Section Social & Family History - Family History Family Medical History: Noncontributory - Tobacco Use Smoking Status *Q: Former Smoker Used Tobacco, but Quit: Yes Month/Year Tobacco Last Used: 09/2019 - Caffeine Use Caffeine Use: Reports: Tea - Recreational Drug Use Recreational Drug Use: Yes Drug Use in Last 12 Months: Yes Recreational Drug Type: Reports: Marijuana/Hashish Recreational Drug Use Frequency: Rarely - Living Situation & Occupation Living situation: Reports: Single, with Significant Other (Fianc), with Family (Son) Occupation: Employed ([employer]) ED ROS GENERAL - Review of Systems Review Of Systems: See Below Constitutional: Reports: No Symptoms HEENT: Reports: No Symptoms, Vertigo Cardiovascular: Reports: No Symptoms GI/Abdominal: Reports: Diarrhea, Nausea, Vomiting : Reports: No Symptoms Musculoskeletal: Reports: Neck Pain. Denies: No Symptoms Skin: Reports: No Symptoms Neurological: Reports: Headache Psychiatric: Reports: No Symptoms - Physical Exam Exam: See Below Exam Limited By: No Limitations General Appearance: Alert, No Apparent Distress Eye Exam: Bilateral Eye: Normal Inspection Ears: Normal External Exam, Normal Canal, Hearing Grossly Normal, Normal TMs Nose: Normal Inspection, Normal Mucosa, No Blood Throat/Mouth: Normal Inspection, Normal Lips, Normal Teeth, Normal Gums, Normal Oropharynx, Normal Voice, No Airway Compromise Head Exam: Atraumatic, Normocephalic Neck: Normal Inspection, Supple, Non-Tender, Full Range of Motion, Other ( Bilateral paraspinous muscle spasm about the same as yesterday.). No: Tender Midline Respiratory/Chest: No Respiratory Distress, Lungs Clear, Normal Breath Sounds Cardiovascular: Regular Rate, Rhythm, No Edema, No Murmur GI/Abdominal: Normal Bowel Sounds, Soft, Non-Tender, Other Neuro Exam (Abbreviated): Other (Nerves II through XII grossly intact all muscle groups the upper and lower extremities are equal and appropriate bilaterally deep tendon reflexes at the patella tendons are equal and appropriate bilaterally cerebellar testing is normal) Back Exam: Normal Inspection. No: CVA Tenderness (L), CVA Tenderness (R), Paraspinal Tenderness, Vertebral Tenderness Extremities: Normal Inspection, No Pedal Edema Course - Vital Signs Last Recorded V/S: Last Vital Signs Temp 36.6 C 11/04/19 17:28 Pulse 90 11/04/19 17:28 Resp 18 11/04/19 17:28 BP 134/81 11/04/19 17:28 Pulse Ox 100 11/04/19 17:28 - Orders/Labs/Meds Labs: Laboratory Tests 11/04/19 11/04/19 11/04/19 Range/Units 16:26 16:26 17:30 WBC 10.49 H (3.98-10.04) K/mm3 RBC 4.71 (3.98-5.22) M/mm3 Hgb 13.6 (11.2-15.7) gm/dl Hct 42.5 (34.1-44.9) % MCV 90.2 (79.4-94.8) fl MCH 28.9 (25.6-32.2) pg MCHC 32.0 L (32.2-35.5) g/dl RDW Std Deviation 44.3 (36.4-46.3) fL Plt Count 421 H (182-369) K/mm3 MPV 9.2 L (9.4-12.3) fl Neut % (Auto) 66.0 (34.0-71.1) % Lymph % (Auto) 26.7 (19.3-51.7) % [place] % (Auto) 5.9 (4.7-12.5) % Eos % (Auto) 1.0 (0.7-5.8) Baso % (Auto) 0.3 (0.1-1.2) % Neut # (Auto) 6.93 H (1.56-6.13) K/mm3 Lymph # (Auto) 2.80 (1.18-3.74) K/mm3 [place] # (Auto) 0.62 H (0.24-0.36) K/mm3 Eos # (Auto) 0.10 (0.04-0.36) K/mm3 Baso # (Auto) 0.03 (0.01-0.08) K/mm3 Manual Slide Review Normal smear Sodium 141 (136-145) mEq/L Potassium 3.7 (3.5-5.1) mEq/L Chloride 104 (98-107) mEq/L Carbon Dioxide 29 (21-32) mEq/L Anion Gap 11.7 (5-15) BUN 6 L (7-18) mg/dL Creatinine 0.9 (0.55-1.02) mg/dL Est Cr Clr Drug Dosing 83.23 mL/min Estimated GFR (MDRD) > 60 (>60) mL/min BUN/Creatinine Ratio 6.7 L (14-18) Glucose 84 (74-106) mg/dL Calcium 9.1 (8.5-10.1) mg/dL Total Bilirubin 0.4 (0.2-1.0) mg/dL AST 23 (15-37) U/L ALT 46 (14-59) U/L Alkaline Phosphatase 78 (46-116) U/L C-Reactive Protein < 0.2 (<1.0) mg/dL Total Protein 7.3 (6.4-8.2) g/dl Albumin 3.9 (3.4-5.0) g/dl Globulin 3.4 gm/dL Albumin/Globulin Ratio 1.2 (1-2) Urine Color Light yellow (Yellow) Urine Appearance Clear (Clear) Urine pH 7.0 (5.0-8.0) Ur Specific [place] 1.015 (1.005-1.030) Urine Protein Negative (Negative) Urine Glucose (UA) Negative (Negative) Urine Ketones Trace H (Negative) Urine Occult Blood Negative (Negative) Urine Nitrite Negative (Negative) Urine Bilirubin Negative (Negative) Urine Urobilinogen 0.2 (0.2-1.0) Ur Leukocyte Esterase Negative (Negative) Meds: Medications Discontinued Medications Generic Name Dose Route Start Last Admin Trade Name Freq PRN Reason Stop Dose Admin Lorazepam 1 mg 11/04/19 16:10 11/04/19 16:34 Ativan IVPUSH 11/04/19 16:11 1 mg ONETIME ONE Administration Ondansetron HCl 4 mg 11/04/19 16:11 11/04/19 16:34 Zofran IVPUSH 11/04/19 16:12 4 mg ONETIME ONE Administration - Re-Assessments/Exams Free Text/Narrative Re-Assessment/Exam: 11/04/19 17:54 T was unremarkable laboratory evaluation is assuring she does not have a largely elevated white count C-reactive protein is normal. The patient was given Zofran Ativan and a liter of fluids and feels remarkably better. At this point the patient does not tolerate nonsteroidal anti-inflammatory medications we will discharge her with a few Zofran and Ativan and advised to push lots of fluids. Departure - Departure Time of Disposition: 17:54 Disposition: Home, Self-Care 01 Clinical Impression: Viral syndrome, Tension headache - Discharge Information Prescriptions: LORazepam [Ativan] 1 mg PO Q12H PRN #6 tablet PRN Reason: Spasms Ondansetron [Zofran ODT] 4 mg PO Q6H PRN #12 tab.dis PRN Reason: Nausea/Vomiting Referrals: PCP,None [Primary Care Provider] - Forms: ED Department Discharge, ED Return to Work/School Form Additional Instructions: Return to the emergency room with any questions problems or worsening symptoms Push lots of fluids. Clear liquid diet for the next 24 hours then slowly advance as tolerated. Use the Ativan every 12 hours as needed for discomfort and so he can get some rest. Use the Zofran for nausea and vomiting. Patient's for the Ativan and Zofran have been sent to [place] [facility] [employer]. Sepsis Event Note - Evaluation Sepsis Screening Result: No Definite Risk - Focused Exam Vital Signs: Vital Signs Temp Pulse Resp BP Pulse Ox 11/04/19 17:28 36.6 C 90 18 134/81 100 11/04/19 15:21 36.4 C 86 18 130/68 100 Date Exam was Performed: 11/04/19 Time Exam was Performed: 18:02
[2019-11-04] MEDS ORDERED: LORazepam 2 MG/ML SDV IVPUSH ONE (16:10)
[2019-11-04] MEDS ORDERED: Ondansetron 4 MG/2 ML SDV IVPUSH ONE (16:11)
--- NOTE | 2019-11-04 16:29 | CT ---
Head CT Technique: Multiple axial sections through the brain were obtained. Intravenous contrast was not utilized. Comparison: No prior intracranial imaging is available. Findings: Ventricles along with basal cisterns and sulci over the convexities are within normal limits for the patient's age. No abnormal parenchymal densities are seen. No evidence of intracranial hemorrhage. No midline shift or mass-effect is seen. Bone window settings were reviewed which shows no acute osseous finding. Visualized paranasal sinuses and mastoid sinuses show nothing acute. Impression: 1. Nothing acute is appreciated on noncontrast head CT study. Diagnostic code #1 This report was dictated in MDT
== END 2019-11-04 18:20 | disposition home or self-care (01) ==
LOC: JD.ED 15:11
DX: G44.209 Tension-type headache, unspecified, not intractable (principal); B34.9 Viral infection, unspecified; E66.9 Obesity, unspecified; Z68.41 Body mass index [BMI] 40.0-44.9, adult; F32.9 Major depressive disorder, single episode, unspecified; Z91.048 Other nonmedicinal substance allergy status; Z88.5 Allergy status to narcotic agent; Z88.6 Allergy status to analgesic agent; Z91.09 Other allergy status, other than to drugs and biological substances; Z91.040 Latex allergy status; Z87.891 Personal history of nicotine dependence
CPT/HCPCS: 36415; 70450; 80053; 81003; 85025; 86140; 96374; 96375; 99284; J2060; J2405

== ENCOUNTER 2020-02-07 21:33 | Emergency (ER) | payer MEDICAID ==
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
[2020-02-07] MEDS ORDERED: QUEtiapine 100 MG Tab PO SCH (23:07)
== END 2020-02-08 08:40 ==
LOC: JD.ED 21:33
DX: F33.1 Major depressive disorder, recurrent, moderate (principal); F17.210 Nicotine dependence, cigarettes, uncomplicated; E66.9 Obesity, unspecified; Z68.39 Body mass index [BMI] 39.0-39.9, adult; Z91.048 Other nonmedicinal substance allergy status; Z88.4 Allergy status to anesthetic agent; Z88.5 Allergy status to narcotic agent; Z91.040 Latex allergy status; Z88.8 Allergy status to other drugs, medicaments and biological substances; Z20.828 Contact with and (suspected) exposure to other viral communicable diseases
CPT/HCPCS: 36415; 80053; 80306; 80307; 84443; 84703; 85025; 85652; 86140; 87635; 93005; 99285; A9270; 93010; U0002

== ENCOUNTER 2020-02-18 14:57 | Emergency (ER) | payer MEDICAID ==
[2020-02-18] MEDS ORDERED: Sodium Chloride 0.9% 1,000 ML IV ONE ×2 (15:37→17:05)
--- NOTE | 2020-02-18 15:37 | EDM.PDOCBH ---
ED HPI GENERAL MEDICAL PROBLEM - General Chief Complaint: Behavioral/Psych Stated Complaint: [facility] Time Seen by Provider: 02/18/20 15:21 Source of Information: Reports: Patient, Old Records, RN Notes Reviewed History Limitations: Reports: Altered Mental Status (answers questions with blinks 2 for yes; 1 for no) - History of Present Illness INITIAL COMMENTS - FREE TEXT/NARRATIVE: It is a 24-year-old female who is brought into the ER today by [facility] in an apparent catatonic state. The initial ambulance call that went out was for a 24-year-old female that was having difficulty moving her arms and her legs. When EMS arrived on scene, they state that this quickly progressed into her not being able to speak, she blinks appropriately in res ponse to yes and no questions, 2 blinks is yes; 1 is no. She is not able to move anything on command, other than this there are no other focal neurological abnormalities. She is on numerous psych medications, and EMS reports that they did recently does have some adjustments. It appears that she has been recently placed on temazepam 15 mg daily. She is on trazodone 100 mg daily PRN, lamotrigine 150 mg daily, bupropion 300 mg daily, quetiapine 50 mg at bedtime, divalproex 1000 mg daily, and Abilify 15 mg daily. She states she has not had any fevers or chills, cough or shortness of breath, she is not having any chest pain. It was reported that she was initially having some hip and back pain earlier today. - Related Data Allergies Allergy/AdvReac Type Severity Reaction Status Date / Time adhesive Allergy Severe Blisters Verified 02/07/20 21:37 benzocaine Allergy Severe Blisters Verified 02/07/20 21:37 hydrocodone [From Vicodin] Allergy Severe Vomiting Verified 02/07/20 21:37 iodine Allergy Severe Vomiting Verified 02/07/20 21:37 latex Allergy Severe Hives Verified 02/07/20 21:37 morphine Allergy Severe Itching Verified 02/07/20 21:37 promethazine [From Phenergan] Allergy Severe Seizure Verified 02/07/20 21:37 nsaids Allergy Severe stoamch Uncoded 02/07/20 21:37 issues Home Meds: Home Meds buPROPion HCL [Wellbutrin Xl] 300 mg PO DAILY 09/03/19 [History] QUEtiapine [SEROquel] 50 mg PO BEDTIME 02/07/20 [History] lamoTRIgine [Lamotrigine] 100 mg PO DAILY 02/07/20 [History] ARIPiprazole [Abilify] 15 mg PO DAILY 02/18/20 [History] Divalproex Sodium [Divalproex Sodium ER] 1,000 mg PO DAILY 02/18/20 [History] Metoclopramide [Reglan] 5 mg PO Q8H PRN 02/18/20 [History] Temazepam [Restoril] 15 mg PO BEDTIME 02/18/20 [History] traZODone HCl [Trazodone HCl] 50 - 100 mg PO BEDTIME PRN 02/18/20 [History] Past Medical History Gastrointestinal History: Reports: Hemorrhoids, PUD MEDICAL BILLER/CODER History: Reports: Musculoskeletal History: Reports: Fibromyalgia Neurological History: Reports: Other (See Below) Other Neuro History: pseudo seizure Psychiatric History: Reports: Anxiety, Bipolar, Depression, Psych Hospital ization(s), Suicide Attempt, Suicidal Ideation Endocrine/Metabolic History: Reports: Obesity/BMI 30+ - Past Surgical History HEENT Surgical History: Reports: Oral Surgery GI Surgical History: Reports: Cholecystectomy, Colonoscopy, EGD, Other (See Below) Other GI Surgeries/Procedures: "Hemorrhoid Clothed" Female Surgical History: Reports: Section ( Times one with the of her son.) Social & Family History - Family History Family Medical History: Noncontributory - Caffeine Use Caffeine Use: Reports: Soda - Living Situation & Occupation Living situation: Reports: Single, with Significant Other (Fianc), with Family (Son) Occupation: Employed ([employer]) ED ROS GENERAL - Review of Systems Review Of Systems: Comprehensive ROS is negative, except as noted in HPI. ED EXAM, BEHAVIORAL HEALTH - Physical Exam Exam: See Below Exam Limited By: Altered Mental Status (pt is unable to move any limb on command. she does blink twice for yes and 1 for no.) General Appearance: Alert Eye Exam: Bilateral Eye: Normal Inspection, PERRL Respiratory/Chest: No Respiratory Distress, Lungs Clear, Normal Breath Sounds, No Accessory Muscle Use, Chest Non-Tender Cardiovascular: Normal Peripheral Pulses, Regular Rate, Rhythm, No Murmur GI/Abdominal: Normal Bowel Sounds, Soft, Non-Tender, No Distention, No Mass Extremities: Normal Inspection, Normal Capillary Refill Neurological: Opens Eyes to Commands Psychiatric: Non-Communicative (in apparent catatonic state) Skin Exam: Warm, Dry, Intact, Normal color, No rash COURSE, BEHAVIORAL HEALTH COMP - Course Vital Signs: Last Vital Signs Temp 98.8 F 02/18/20 15:01 Pulse 102 H 02/18/20 15:01 Resp 16 02/18/20 15:01 BP 138/93 H 02/18/20 15:01 Pulse Ox 98 02/18/20 15:01 Orders, Labs, Meds: Active Orders 24 hr Category Date Time Status EKG Documentation Completion [RC] STAT Care 02/18/20 15:22 Active Laboratory Tests 02/18/20 02/18/20 02/18/20 Range/Units 15:22 15:22 15:45 WBC 9.61 (3.98-10.04) K/mm3 RBC 4.65 (3.98-5.22) M/mm3 Hgb 13.4 (11.2-15.7) gm/dl Hct 42.0 (34.1-44.9) % MCV 90.3 (79.4-94.8) fl MCH 28.8 (25.6-32.2) pg MCHC 31.9 L (32.2-35.5) g/dl RDW Std Deviation 46.9 H (36.4-46.3) fL Plt Count 421 H (182-369) K/mm3 MPV 9.5 (9.4-12.3) fl Neutrophils % (Manual) 72 H (40-60) % Band Neutrophils % 0 (0-10) % Lymphocytes % (Manual) 21 (20-40) % Atypical Lymphs % 0 % Monocytes % (Manual) 7 (2-10) % Eosinophils % (Manual) 0 L (0.7-5.8) % Basophils % (Manual) 0 L (0.1-1.2) Platelet Estimate Adequate RBC Morph Comment Normal Sodium (136-145) mEq/L Potassium (3.5-5.1) mEq/L Chloride (98-107) mEq/L Carbon Dioxide (21-32) mEq/L Anion Gap (5-15) BUN (7-18) mg/dL Creatinine (0.55-1.02) mg/dL Est Cr Clr Drug Dosing Estimated GFR (MDRD) (>60) mL/min BUN/Creatinine Ratio (14-18) Glucose (74-106) mg/dL Calcium (8.5-10.1) mg/dL Total Bilirubin (0.2-1.0) mg/dL AST (15-37) U/L ALT (14-59) U/L Alkaline Phosphatase (46-116) U/L Total Protein (6.4-8.2) g/dl Albumin (3.4-5.0) g/dl Globulin gm/dL Albumin/Globulin Ratio (1-2) TSH 3rd Generation (0.358-3.74) uIU/mL Urine HCG, Qual Negative (NEGATIVE) Salicylates (2.8-20) mg/dL Urine Opiates Screen Negative (IMOQNU=420) Ur Buprenorphine Scrn Negative (CUTOFF=10) Ur Oxycodone Screen Negative (TQA8EZ=806) Urine Methadone Screen Negative (JXJPPU=867) Ur Propoxyphene Screen Negative (RLRESI=810) Acetaminophen (10-30) ug/mL Ur Barbiturates Screen Negative (WRUXSB=984) Ur Tricyclics Screen Negative (HLHQWB=955) Ur Phencyclidine Scrn Negative (CUTOFF=25) Ur Amphetamine Screen Negative (JALNNC=880) U Methamphetamines Scrn Negative (QCUPRA=380) U Benzodiazepines Scrn Negative (TRNJOU=412) U Cocaine Metab Screen Negative (LGINNW=643) U Marijuana (THC) Screen Negative (CUTOFF=50) Ethyl Alcohol (0.00) gm% COVID-19 (ANAIS) (NEGATIVE) 02/18/20 02/18/20 02/18/20 Range/Units 15:45 15:45 15:48 WBC (3.98-10.04) K/mm3 RBC (3.98-5.22) M/mm3 Hgb (11.2-15.7) gm/dl Hct (34.1-44.9) % MCV (79.4-94.8) fl MCH (25.6-32.2) pg MCHC (32.2-35.5) g/dl RDW Std Deviation (36.4-46.3) fL Plt Count (182-369) K/mm3 MPV (9.4-12.3) fl Neutrophils % (Manual) (40-60) % Band Neutrophils % (0-10) % Lymphocytes % (Manual) (20-40) % Atypical Lymphs % % Monocytes % (Manual) (2-10) % Eosinophils % (Manual) (0.7-5.8) % Basophils % (Manual) (0.1-1.2) Platelet Estimate RBC Morph Comment Sodium 142 (136-145) mEq/L Potassium 4.4 (3.5-5.1) mEq/L Chloride 105 (98-107) mEq/L Carbon Dioxide 27 (21-32) mEq/L Anion Gap 14.4 (5-15) BUN 14 (7-18) mg/dL Creatinine 1.0 (0.55-1.02) mg/dL Est Cr Clr Drug Dosing TNP Estimated GFR (MDRD) > 60 (>60) mL/min BUN/Creatinine Ratio 14.0 (14-18) Glucose 95 (74-106) mg/dL Calcium 9.4 (8.5-10.1) mg/dL Total Bilirubin 0.2 (0.2-1.0) mg/dL AST 11 L (15-37) U/L ALT 30 (14-59) U/L Alkaline Phosphatase 70 (46-116) U/L Total Protein 7.4 (6.4-8.2) g/dl Albumin 3.7 (3.4-5.0) g/dl Globulin 3.7 gm/dL Albumin/Globulin Ratio 1.0 (1-2) TSH 3rd Generation 1.021 (0.358-3.74) uIU/mL Urine HCG, Qual (NEGATIVE) Salicylates 0.6 L (2.8-20) mg/dL Urine Opiates Screen (DXHFAX=332) Ur Buprenorphine Scrn (CUTOFF=10) Ur Oxycodone Screen (CKX0VT=307) Urine Methadone Screen (NOCYDJ=375) Ur Propoxyphene Screen (LYKIUD=033) Acetaminophen 0 L (10-30) ug/mL Ur Barbiturates Screen (ZVGJEE=138) Ur Tricyclics Screen (ZPXYMM=239) Ur Phencyclidine Scrn (CUTOFF=25) Ur Amphetamine Screen (ZCQGWA=202) U Methamphetamines Scrn (YSWSEM=204) U Benzodiazepines Scrn (AKJSHX=434) U Cocaine Metab Screen (DHWNGV=164) U Marijuana (THC) Screen (CUTOFF=50) Ethyl Alcohol 0.00 (0.00) gm% COVID-19 (ANAIS) Negative (NEGATIVE) Medications Discontinued Medications Generic Name Dose Route Start Last Admin Trade Name Maxine PRN Reason Stop Dose Admin Sodium Chloride 1,000 mls @ 999 mls/hr 02/18/20 15:37 02/18/20 15:58 Normal Saline IV 02/18/20 16:37 999 mls/hr ONETIME ONE Administration Sodium Chloride 1,000 mls @ 999 mls/hr 02/18/20 17:05 02/18/20 17:33 Normal Saline IV 02/18/20 18:05 999 mls/hr ONETIME ONE Administration Ketorolac Tromethamine 30 mg 02/18/20 16:21 02/18/20 16:35 Toradol IVPUSH 02/18/20 16:22 30 mg ONETIME ONE Administration Lorazepam 0.5 mg 02/18/20 18:12 02/18/20 19:06 Ativan IM 02/18/20 18:13 Not Given ONETIME ONE Lorazepam 0.5 mg 02/18/20 18:43 02/18/20 19:07 Ativan IVPUSH 02/18/20 18:44 0.5 mg ONETIME ONE Administration Discharge vs Psych Eval/Treatment:: 02/18/20 15:41 Patient presents to the ED in a catatonic state by ambulance service. Not entirely sure as to what is happening with the patient, I did discuss the case with Dr. Conde. Have performed some labs for initial evaluation, and he sug gests giving her lots of fluids, she might need to get up and use the bathroom, this might help get her out of her catatonic state. Have ordered a bag of fluids at this time. We will observe her in the ER for some time before disposition is reached for further management. 02/18/20 15:51 Review of the patient's last ER visit on February 07, 2020 in this ER, demonstrated that she was feeling suicidal at that time. She does have a history of multiple medication changes, and again she did have a recent med add and some decrease in increase of dosages. However she is not able to tell us exactly which meds these are. We did look at the bottles and tried to discern which ones were increased and which ones were decreased. She went to [facility] in [place] for management on 06 February. At this time we will observe her in the ER for some time, if she does not seem to be coming to. We will try to get her readmitted for psychiatric evaluation. 02/18/20 16:22 Patient was reassessed at bedside, and she is coming to a little bit more, she nodded her head slightly when asked questions. I asked if she is having pain and she indicated yes, I did push on her upper abdomen, and she winced in pain. At this time we will try to give her some Toradol for management as I do not want to give her a whole lot of stronger pain meds due to the amount of medication she actually is taking. We will try to keep a close eye on her and reassess her as she is getting more coherent. 02/18/20 17:52 Nursing staff said that she is getting more verbal and is able to answer some questions. Her grandfather Don did call and state that he was told that she may have taken a medication at 4 AM, that she was just started on that she should have taken at night, this could have been the temazepam. The grandfather also noted that they went to a gathering at the [employer] [place], and she did have a [employer] coffee, that was overly caffeinated, and he was not sure if this could make a difference. 02/18/20 18:13 Patient has been verbalizing; states that she took depakote and temazepam this morning at 4AM. Later this afternoon, she was playing on her phone and she had some pain or tingling in her legs and arms, so she started "freaking out" and that's when every thing kind of went downhill. She states now that she is having some numbness/tingling feelings to her extremities; like how they feel like they waking up from when they fall asleep. 02/18/20 19:26 The patient was able to talk with me at length at bedside, and Dr. Troncoso was present. At this time I do not believe she would need hospitalization and she should be fit to go home, she is states she has close follow-up with her psychiatrist on Thursday, she states that the recent psych hospitalization has her feeling much better, her moods have somewhat stabilized. She is not suicidal, not homicidal, she is not hearing things that are not there, she is not seeing things that are not there. Departure - Departure Time of Disposition: 19:27 Disposition: Home, Self-Care 01 Condition: Good Clinical Impression: Conversion reaction - Discharge Information *PRESCRIPTION DRUG MONITORING PROGRAM REVIEWED*: No *COPY OF PRESCRIPTION DRUG MONITORING REPORT IN PATIENT CHANDAN: No Forms: ED Department Discharge Additional Instructions: You were evaluated in the ER today for your catatonic-like state. You were given some IV fluids, and were observed in the ER for quite some time and seem to come to well, and are being discharged home at this time. Please keep your appointment with your psychiatrist/therapist for Thursday, for further evaluation and management. Please continue to take all medications as previously prescribed and set forth by your providers. You should talk to your therapist about EMDR therapy for further management as well. Please return to the ER at any time if your symptoms change or worsen. Sepsis Event Note (ED) - Evaluation Sepsis Screening Result: No Definite Risk - Focused Exam Vital Signs: Vital Signs Temp Pulse Resp BP Pulse Ox 02/18/20 15:01 98.8 F 102 H 16 138/93 H 98 - My Orders Last 24 Hours: My Active Orders 02/18/20 15:22 EKG Documentation Completion [RC] STAT - Assessment/Plan Last 24 Hours: My Active Orders 02/18/20 15:22 EKG Documentation Completion [RC] STAT
[2020-02-18] MEDS ORDERED: Ketorolac 30 MG/ML SDV IVPUSH ONE (16:21)
[2020-02-18 16:27] LABS: ACETAMINOPHEN 0 ug/mL (10-30)
[2020-02-18] MEDS: LORazepam 2 MG/ML SDV IM ONE ×2 (18:40→19:06)
[2020-02-18] MEDS ORDERED: LORazepam 2 MG/ML SDV IVPUSH ONE (18:43)
== END 2020-02-18 19:46 | disposition home or self-care (01) ==
LOC: JD.ED 14:57
DX: F44.9 Dissociative and conversion disorder, unspecified (principal); F41.9 Anxiety disorder, unspecified; F31.9 Bipolar disorder, unspecified; E66.9 Obesity, unspecified; Z20.828 Contact with and (suspected) exposure to other viral communicable diseases; Z91.048 Other nonmedicinal substance allergy status; Z88.8 Allergy status to other drugs, medicaments and biological substances; Z88.5 Allergy status to narcotic agent; Z91.040 Latex allergy status; Z88.6 Allergy status to analgesic agent; Z98.890 Other specified postprocedural states; Z79.899 Other long term (current) drug therapy
CPT/HCPCS: 36415; 80053; 80306; 80307; 81025; 84443; 85007; 85027; 87635; 93005; 96361; 96374; 96375; 99285; J1885; J2060; J7030; 93010; 99284; U0002

== ENCOUNTER 2020-03-25 10:21 | Emergency (ER) | payer MEDICAID ==
[2020-03-25 12:03] LABS: ACETAMINOPHEN 0 ug/mL (10-30)
--- NOTE | 2020-03-25 12:11 | EDM.PDOCBH ---
ED HPI GENERAL MEDICAL PROBLEM - General Chief Complaint: Behavioral/Psych Stated Complaint: SUICIDAL AND CUTTING HERSELF Time Seen by Provider: 03/25/20 11:13 Source of Information: Reports: Patient, RN Notes Reviewed History Limitations: Reports: No Limitations - History of Present Illness INITIAL COMMENTS - FREE TEXT/NARRATIVE: Patient is a 24-year-old female who presents to the ED for evaluation of suicidal ideation and self-harm. Patient states she has a history of borderline personality disorder, and states she does have some issues with her coping skills, she states that she had a verbal argument with her grandfather and fianc this morning, for both of which she lives with and states that she kind of "blacked out", and when she realized what she was doing, she was holding a knife in her hand that had blood on it and she looked down at her left arm and there were multiple superficial cuts. She said that she had some thoughts of not wanting to be there initially at that time, but she states that she is not suicidal at this time, and has no plan. She states she kind of "freaked out and called 911". She is not seeing anything that is not there, not hearing anything does not there, she does have a point of contact at [facility] named Ermelinda, for which she states that she will get a hold of tomorrow for further evaluation and management, she states that she has been recently started on new psychiatric medications and she is gone through a lot of these, as she is a super metabolizer of medications. She understands that is going to take time for some his medications to work and she is doing her best to let that happen. She also states she is not been sleeping well due to the change in medications. Patient states again that she is not actively suicidal at this time, and does have a safe place to go if she is discharged home. She recently got out of [facility] in [place] for inpatient psychiatric management on February 10. Left Wrist Pain Score (Numeric/FACES): 4 - Related Data Allergies Allergy/AdvReac Type Severity Reaction Status Date / Time adhesive Allergy Severe Blisters Verified 03/25/20 10:35 benzocaine Allergy Severe Blisters Verified 03/25/20 10:35 hydrocodone [From Vicodin] Allergy Severe Vomiting Verified 03/25/20 10:35 iodine Allergy Severe Vomiting Verified 03/25/20 10:35 latex Allergy Severe Hives Verified 03/25/20 10:35 morphine Allergy Severe Itching Verified 03/25/20 10:35 promethazine [From Phenergan] Allergy Severe Seizure Verified 03/25/20 10:35 nsaids Allergy Severe stoamch Uncoded 03/25/20 10:35 issues Home Meds: Home Meds buPROPion HCL [Wellbutrin Xl] 300 mg PO DAILY 09/03/19 [History] lamoTRIgine [Lamotrigine] 100 mg PO BID 02/07/20 [History] Famotidine 20 mg PO DAILY 03/25/20 [History] Prazosin HCl [Prazosin] 4 mg PO BEDTIME 03/25/20 [History] Venlafaxine HCl [Venlafaxine ER] 150 mg PO DAILY 03/25/20 [History] hydrOXYzine HCL [Atarax] 75 mg PO BEDTIME 03/25/20 [History] Past Medical History Gastrointestinal History: Reports: Hemorrhoids, PUD 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: Musculoskeletal History: Reports: Fibromyalgia Neurological History: Reports: Other (See Below) Other Neuro History: pseudo seizure Psychiatric History: Reports: Anxiety, Bipolar, Depression, Psych Hospital ization(s) (Feb 2020), PTSD, Suicide Attempt, Suicidal Ideation, Other (See Below) Other Psychiatric History: borderline personality disorder, manic bipolar Endocrine/Metabolic History: Reports: Obesity/BMI 30+ - Past Surgical History HEENT Surgical History: Reports: Oral Surgery GI Surgical History: Reports: Cholecystectomy, Colonoscopy, EGD Female Surgical History: Reports: Section Social & Family History - Family History Family Medical History: Noncontributory - Tobacco Use Tobacco Use Status *Q: Never Tobacco User - Caffeine Use Caffeine Use: Reports: Soda - Recreational Drug Use Recreational Drug Use: Yes Drug Use in Last 12 Months: Yes Recreational Drug Type: Reports: Marijuana/Hashish Recreational Drug Use Frequency: Socially - Living Situation & Occupation Living situation: Reports: Single, with Significant Other (Fianc), with Family (Son) Occupation: Employed ([employer]) ED ROS GENERAL - Review of Systems Review Of Systems: Comprehensive ROS is negative, except as noted in HPI. ED EXAM, BEHAVIORAL HEALTH - Physical Exam Exam: See Below Exam Limited By: No Limitations General Appearance: Alert, WD/WN, No Apparent Distress Respiratory/Chest: No Respiratory Distress, Lungs Clear, Normal Breath Sounds, No Accessory Muscle Use, Chest Non-Tender Cardiovascular: Normal Peripheral Pulses, Regular Rate, Rhythm, No Murmur GI/Abdominal: Normal Bowel Sounds, Soft, Non-Tender, No Distention, No Mass Extremities: Normal Range of Motion, Normal Capillary Refill, Other (multiple superficial lacerations to left anterior forearm, none are deep enough to require laceration repair.) Neurological: Alert, Normal Mood/Affect, Normal Cognition, No Motor/Sensory Deficits, Oriented x 3 Psychiatric: Alert, Normal Affect, Normal Cognition, Normal Mood, Oriented, Suicidal Thoughts (passive this morning, none at time of ED visit). No: Suicidal Plan, Auditory Hallucinations, Visual Hallucinations Skin Exam: Warm, Dry, Intact, Normal color, No rash COURSE, BEHAVIORAL HEALTH COMP - Course Vital Signs: Last Vital Signs Temp 98.9 F 03/25/20 10:32 Pulse 115 H 03/25/20 10:32 Resp 16 03/25/20 10:32 BP 129/87 03/25/20 10:32 Pulse Ox 94 L 03/25/20 10:32 Orders, Labs, Meds: Active Orders 24 hr Category Date Time Status DRUG SCREEN, URINE [URCHEM] Stat Lab 03/25/20 11:02 Ordered HCG QUALITATIVE,URINE [URCHEM] Stat Lab 03/25/20 11:14 Ordered SALICYLATE [CHEM] Stat Lab 03/25/20 11:13 Received UA W/JESUS RFLX IF INDICATED [URIN] Stat Lab 03/25/20 11:02 Ordered Laboratory Tests 03/25/20 03/25/20 03/25/20 Range/Units 11:13 11:13 11:13 WBC 8.06 (3.98-10.04) K/mm3 RBC 4.56 (3.98-5.22) M/mm3 Hgb 13.1 (11.2-15.7) gm/dl Hct 40.5 (34.1-44.9) % MCV 88.8 (79.4-94.8) fl MCH 28.7 (25.6-32.2) pg MCHC 32.3 (32.2-35.5) g/dl RDW Std Deviation 46.2 (36.4-46.3) fL Plt Count 412 H (182-369) K/mm3 MPV 8.8 L (9.4-12.3) fl Neut % (Auto) 72.4 H (34.0-71.1) % Lymph % (Auto) 20.2 (19.3-51.7) % Foard % (Auto) 5.3 (4.7-12.5) % Eos % (Auto) 1.7 (0.7-5.8) Baso % (Auto) 0.4 (0.1-1.2) % Neut # (Auto) 5.83 (1.56-6.13) K/mm3 Lymph # (Auto) 1.63 (1.18-3.74) K/mm3 Foard # (Auto) 0.43 H (0.24-0.36) K/mm3 Eos # (Auto) 0.14 (0.04-0.36) K/mm3 Baso # (Auto) 0.03 (0.01-0.08) K/mm3 Sodium 139 (136-145) mEq/L Potassium 4.1 (3.5-5.1) mEq/L Chloride 105 (98-107) mEq/L Carbon Dioxide 22 (21-32) mEq/L Anion Gap 16.1 H (5-15) BUN 11 (7-18) mg/dL Creatinine 1.1 H (0.55-1.02) mg/dL Est Cr Clr Drug Dosing 68.10 mL/min Estimated GFR (MDRD) > 60 (>60) mL/min BUN/Creatinine Ratio 10.0 L (14-18) Glucose 121 H (74-106) mg/dL Calcium 8.9 (8.5-10.1) mg/dL Total Bilirubin 0.4 (0.2-1.0) mg/dL AST 16 (15-37) U/L ALT 47 (14-59) U/L Alkaline Phosphatase 79 (46-116) U/L Total Protein 7.3 (6.4-8.2) g/dl Albumin 3.6 (3.4-5.0) g/dl Globulin 3.7 gm/dL Albumin/Globulin Ratio 1.0 (1-2) TSH 3rd Generation 0.848 (0.358-3.74) uIU/mL Acetaminophen 0 L (10-30) ug/mL Ethyl Alcohol 0.00 (0.00) gm% Discharge vs Psych Eval/Treatment:: 03/25/20 11:40 Patient presents to the ED for evaluation of her suicidal ideations and a mental health evaluation. The patient did make a bad judgment call earlier today, and did do some self-harm. At this time I did talk with her extensively I do not believe she is a threat to herself or others. Labs all look fairly okay, no acute abnormalities that need medical attention. Patient will be discharged home on her own recognizance and she states she will follow-up with her point in contact at [facility] tomorrow for further management. Departure - Departure Time of Disposition: 12:15 Disposition: Home, Self-Care 01 Condition: Good Clinical Impression: Passive suicidal ideations, Self-harming behavior - Discharge Information *PRESCRIPTION DRUG MONITORING PROGRAM REVIEWED*: No *COPY OF PRESCRIPTION DRUG MONITORING REPORT IN PATIENT CHANDAN: No Instructions: Self-Harming Behavior Information, Suicidal Feelings: How to Help Yourself Referrals: Gracie Blount PA-C [Primary Care Provider] - Additional Instructions: You were seen in the ER for your passive suicidal ideation, and self-harm. Please keep your left arm, clean with warm soapy water and bandaged as appropriate to allow healing, watch out for signs of infection like redness, swelling, drainage at the wound sites. Please follow-up with Ermelinda at [facility] tomorrow for further management and evaluation of your psychiatric/mental health. Please try to discuss your picking behaviors with them as well, to see if they can do something about that. Dealing with mental illness can be rough, but it seems that you are utilizing her coping skills to try to get through these dark times. I would recommend trying to distance herself from your grandfather and fianc for the most part of today, as to not get in more altercations with them that might affect your mood in a harmful way. Please return to the ER at any time if your symptoms change or worsen. Sepsis Event Note (ED) - Evaluation Sepsis Screening Result: No Definite Risk - Focused Exam Vital Signs: Vital Signs Temp Pulse Resp BP Pulse Ox 03/25/20 10:32 98.9 F 115 H 16 129/87 94 L - My Orders Last 24 Hours: My Active Orders 03/25/20 11:02 DRUG SCREEN, URINE [URCHEM] Stat UA W/JESUS RFLX IF INDICATED [URIN] Stat 03/25/20 11:13 SALICYLATE [CHEM] Stat 03/25/20 11:14 HCG QUALITATIVE,URINE [URCHEM] Stat - Assessment/Plan Last 24 Hours: My Active Orders 03/25/20 11:02 DRUG SCREEN, URINE [URCHEM] Stat UA W/JESUS RFLX IF INDICATED [URIN] Stat 03/25/20 11:13 SALICYLATE [CHEM] Stat 03/25/20 11:14 HCG QUALITATIVE,URINE [URCHEM] Stat
== END 2020-03-25 12:29 | disposition home or self-care (01) ==
LOC: JD.ED 10:21
DX: S51.812A Laceration without foreign body of left forearm, initial encounter (principal); F31.9 Bipolar disorder, unspecified; F41.9 Anxiety disorder, unspecified; E66.9 Obesity, unspecified; Z91.048 Other nonmedicinal substance allergy status; Z88.4 Allergy status to anesthetic agent; Z88.5 Allergy status to narcotic agent; Z91.040 Latex allergy status; Z88.8 Allergy status to other drugs, medicaments and biological substances; Z79.899 Other long term (current) drug therapy; X78.1XXA Intentional self-harm by knife, initial encounter
CPT/HCPCS: 36415; 80053; 80307; 84443; 85025; 99283; 99285

== ENCOUNTER 2020-05-18 17:30 | Emergency (ER) | payer MEDICAID ==
[2020-05-18] MEDS ORDERED: Ketorolac 60 MG/2 ML SDV IM ONE (17:51)
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
== END 2020-05-18 18:13 | disposition home or self-care (01) ==
LOC: JD.ED 17:30
DX: M54.41 Lumbago with sciatica, right side (principal); F31.9 Bipolar disorder, unspecified; E66.9 Obesity, unspecified; Z68.41 Body mass index [BMI] 40.0-44.9, adult; Z91.048 Other nonmedicinal substance allergy status; Z88.4 Allergy status to anesthetic agent; Z88.5 Allergy status to narcotic agent; Z91.040 Latex allergy status; Z88.8 Allergy status to other drugs, medicaments and biological substances; Z79.899 Other long term (current) drug therapy
CPT/HCPCS: 96372; 99283; J1885

== ENCOUNTER 2020-07-10 19:04 | Emergency (ER) | payer MEDICAID ==
[2020-07-10] MEDS ORDERED: Sodium Chloride 0.9% 10 ML Syringe FLUSH PRN ×2 (19:24→19:38)
[2020-07-10] MEDS ORDERED: Sodium Chloride 0.9% 1,000 ML IV STA (19:38)
[2020-07-10] MEDS ORDERED: Ondansetron 4 MG/2 ML SDV IVPUSH ONE (19:38)
--- NOTE | 2020-07-10 19:50 | EDM.PDOC ---
ED HPI GENERAL MEDICAL PROBLEM - General Chief Complaint: Genitourinary Problem Stated Complaint: TROUBLE URINATING AND NAUSEA Time Seen by Provider: 07/10/20 19:23 Source of Information: Reports: Patient, RN Notes Reviewed History Limitations: Reports: No Limitations - History of Present Illness INITIAL COMMENTS - FREE TEXT/NARRATIVE: Patient is a 24-year-old female presenting to the emergency department with complaints of nausea, vomiting, sensitivity to smell, and frequency of urination with only going small amounts. She states that she has had a total of 3 episodes of vomiting since of last week. Overall she does feel nauseous with decreased appetite. Her nausea is worsened by smelling food. She denies any abdominal pain associated with this. She also states that she has frequency of urination but when she goes she only goes a small amount. Denies any dysuria or hematuria. She states that she feels that she may be . She was on the Depo shot but that on 16 May and she has not had a new injection. She is sexually active. Denies any abnormal discharge, itching, or burning. Patient states that she does have hemorrhoids and is scheduled to have a hemorrhoidectomy completed with Dr. Malcolm at [place] next week. She denies any fever, chills, or diarrhea. - Related Data Allergies Allergy/AdvReac Type Severity Reaction Status Date / Time adhesive Allergy Severe Blisters Verified 07/10/20 19:16 benzocaine Allergy Severe Blisters Verified 07/10/20 19:16 hydrocodone [From Vicodin] Allergy Severe Vomiting Verified 07/10/20 19:16 iodine Allergy Severe Vomiting Verified 07/10/20 19:16 latex Allergy Severe Hives Verified 07/10/20 19:16 morphine Allergy Severe Itching Verified 07/10/20 19:16 promethazine [From Phenergan] Allergy Severe Seizure Verified 07/10/20 19:16 nsaids Allergy Severe stoamch Uncoded 03/25/20 10:35 issues Home Meds: Home Meds lamoTRIgine [Lamotrigine] 100 mg PO BID 02/07/20 [History] Famotidine 20 mg PO DAILY 03/25/20 [History] Prazosin HCl [Prazosin] 4 mg PO BEDTIME 03/25/20 [History] hydrOXYzine HCL [Atarax] 75 mg PO BEDTIME 03/25/20 [History] methylPREDNISolone [Medrol Dose Pack] 4 mg PO ASDIRECTED #1 dospk 05/18/20 [Rx] oxyCODONE HCl/Acetaminophen [Oxycodone-Acetaminophen 5-325] 1 each PO Q6H #12 tablet 05/18/20 [Rx] Past Medical History - Past Health History Medical/Surgical History: Denies Medical/Surgical History Cardiovascular History: Reports: None Respiratory History: Reports: None Gastrointestinal History: Reports: Hemorrhoids, PUD 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: Musculoskeletal History: Reports: Fibromyalgia Neurological History: Reports: Other (See Below) Other Neuro History: pseudo seizure Psychiatric History: Reports: Anxiety, Bipolar, Depression, Psych Hospitalization(s), PTSD, Suicide Attempt, Suicidal Ideation, Other (See Below) Other Psychiatric History: borderline personality disorder, manic bipolar Endocrine/Metabolic History: Reports: Obesity/BMI 30+ Hematologic History: Reports: None Immunologic History: Reports: None Oncologic (Cancer) History: Reports: None Dermatologic History: Reports: None - Infectious Disease History Infectious Disease History: Reports: None - Past Surgical History HEENT Surgical History: Reports: Oral Surgery GI Surgical History: Reports: Cholecystectomy, Colonoscopy, EGD Other GI Surgeries/Procedures: "Hemorrhoid Clothed" Female Surgical History: Reports: Section Social & Family History - Family History Family Medical History: No Pertinent Family History - Tobacco Use Tobacco Use Status *Q: Never Tobacco User - Caffeine Use Caffeine Use: Reports: None - Recreational Drug Use Recreational Drug Use: Yes Drug Use in Last 12 Months: Yes Recreational Drug Type: Reports: Marijuana/Hashish Recreational Drug Use Frequency: Socially - Living Situation & Occupation Living situation: Reports: Single, with Significant Other (Fianc), with Family (Son) Occupation: Employed ([employer]) ED ROS GENERAL - Review of Systems Review Of Systems: See Below Constitutional: Reports: Decreased Appetite. Denies: Fever, Chills HEENT: Reports: No Symptoms Respiratory: Reports: No Symptoms Cardiovascular: Reports: No Symptoms Endocrine: Reports: No Symptoms GI/Abdominal: Reports: Nausea, Vomiting. Denies: Abdominal Pain, Diarrhea : Reports: Frequency. Denies: Dysuria, Flank Pain Musculoskeletal: Reports: No Symptoms Skin: Reports: No Symptoms Neurological: Reports: No Symptoms Psychiatric: Reports: No Symptoms Hematologic/Lymphatic: Reports: No Symptoms Immunologic: Reports: No Symptoms ED EXAM, GENERAL - Physical Exam Exam: See Below General Appearance: Alert, WD/WN, No Apparent Distress Respiratory/Chest: No Respiratory Distress, Lungs Clear, Normal Breath Sounds, No Accessory Muscle Use, Chest Non-Tender Cardiovascular: Normal Peripheral Pulses, Regular Rate, Rhythm, No Edema, No Gallop, No JVD, No Murmur, No Rub GI/Abdominal: Normal Bowel Sounds, Soft, Non-Tender, No Organomegaly, No Distention, No Abnormal Bruit, No Mass Neurological: Alert, Oriented, CN II-XII Intact, Normal Cognition, Normal Gait, Normal Reflexes, No Motor/Sensory Deficits Psychiatric: Normal Affect, Normal Mood Skin Exam: Warm, Dry, Intact, Normal Color, No Rash Course - Vital Signs Last Recorded V/S: Last Vital Signs Temp 97.7 F 07/10/20 19:13 Pulse 115 H 07/10/20 19:13 Resp 20 07/10/20 19:13 BP 152/98 H 07/10/20 19:13 Pulse Ox 100 07/10/20 19:13 - Orders/Labs/Meds Labs: Laboratory Tests 07/10/20 07/10/20 07/10/20 Range/Units 19:57 19:57 19:57 WBC 8.44 (3.98-10.04) K/mm3 RBC 4.73 (3.98-5.22) M/mm3 Hgb 13.1 D (11.2-15.7) gm/dl Hct 41.0 (34.1-44.9) % MCV 86.7 (79.4-94.8) fl MCH 27.7 (25.6-32.2) pg MCHC 32.0 L (32.2-35.5) g/dl RDW Std Deviation 44.8 (36.4-46.3) fL Plt Count 475 H (182-369) K/mm3 MPV 8.9 L (9.4-12.3) fl Neut % (Auto) 65.6 (34.0-71.1) % Lymph % (Auto) 27.7 (19.3-51.7) % Davie % (Auto) 5.2 (4.7-12.5) % Eos % (Auto) 1.1 (0.7-5.8) Baso % (Auto) 0.2 (0.1-1.2) % Neut # (Auto) 5.53 (1.56-6.13) K/mm3 Lymph # (Auto) 2.34 (1.18-3.74) K/mm3 Davie # (Auto) 0.44 H (0.24-0.36) K/mm3 Eos # (Auto) 0.09 (0.04-0.36) K/mm3 Baso # (Auto) 0.02 (0.01-0.08) K/mm3 Sodium 141 (136-145) mEq/L Potassium 3.5 (3.5-5.1) mEq/L Chloride 105 (98-107) mEq/L Carbon Dioxide 24 (21-32) mEq/L Anion Gap 15.5 H (5-15) BUN 10 (7-18) mg/dL Creatinine 1.0 (0.55-1.02) mg/dL Est Cr Clr Drug Dosing 81.21 mL/min Estimated GFR (MDRD) > 60 (>60) mL/min BUN/Creatinine Ratio 10.0 L (14-18) Glucose 86 (74-106) mg/dL Calcium 9.1 (8.5-10.1) mg/dL Magnesium 2.1 (1.8-2.4) mg/dl Total Bilirubin 0.4 (0.2-1.0) mg/dL AST 22 (15-37) U/L ALT 40 (14-59) U/L Alkaline Phosphatase 82 (46-116) U/L Total Protein 7.7 (6.4-8.2) g/dl Albumin 3.9 (3.4-5.0) g/dl Globulin 3.8 gm/dL Albumin/Globulin Ratio 1.0 (1-2) Urine Color (Yellow) Urine Appearance (Clear) Urine pH (5.0-8.0) Ur Specific Elsie (1.005-1.030) Urine Protein (Negative) Urine Glucose (UA) (Negative) Urine Ketones (Negative) Urine Occult Blood (Negative) Urine Nitrite (Negative) Urine Bilirubin (Negative) Urine Urobilinogen (0.2-1.0) Ur Leukocyte Esterase (Negative) Urine RBC (0-5) /hpf Urine WBC (0-5) /hpf Ur Squamous Epith Cells (0-5) /hpf Calcium Oxalate Crystal (NONE) Urine Bacteria (FEW) /hpf Urine Mucus (FEW) /hpf Urine HCG, Qual (NEGATIVE) 07/10/20 07/10/20 Range/Units 21:00 21:00 WBC (3.98-10.04) K/mm3 RBC (3.98-5.22) M/mm3 Hgb (11.2-15.7) gm/dl Hct (34.1-44.9) % MCV (79.4-94.8) fl MCH (25.6-32.2) pg MCHC (32.2-35.5) g/dl RDW Std Deviation (36.4-46.3) fL Plt Count (182-369) K/mm3 MPV (9.4-12.3) fl Neut % (Auto) (34.0-71.1) % Lymph % (Auto) (19.3-51.7) % Davie % (Auto) (4.7-12.5) % Eos % (Auto) (0.7-5.8) Baso % (Auto) (0.1-1.2) % Neut # (Auto) (1.56-6.13) K/mm3 Lymph # (Auto) (1.18-3.74) K/mm3 Davie # (Auto) (0.24-0.36) K/mm3 Eos # (Auto) (0.04-0.36) K/mm3 Baso # (Auto) (0.01-0.08) K/mm3 Sodium (136-145) mEq/L Potassium (3.5-5.1) mEq/L Chloride (98-107) mEq/L Carbon Dioxide (21-32) mEq/L Anion Gap (5-15) BUN (7-18) mg/dL Creatinine (0.55-1.02) mg/dL Est Cr Clr Drug Dosing mL/min Estimated GFR (MDRD) (>60) mL/min BUN/Creatinine Ratio (14-18) Glucose (74-106) mg/dL Calcium (8.5-10.1) mg/dL Magnesium (1.8-2.4) mg/dl Total Bilirubin (0.2-1.0) mg/dL AST (15-37) U/L ALT (14-59) U/L Alkaline Phosphatase (46-116) U/L Total Protein (6.4-8.2) g/dl Albumin (3.4-5.0) g/dl Globulin gm/dL Albumin/Globulin Ratio (1-2) Urine Color Yellow (Yellow) Urine Appearance Clear (Clear) Urine pH 6.0 (5.0-8.0) Ur Specific Elsie > or = 1.030 (1.005-1.030) Urine Protein Trace H (Negative) Urine Glucose (UA) Negative (Negative) Urine Ketones Negative (Negative) Urine Occult Blood Trace-lysed H (Negative) Urine Nitrite Negative (Negative) Urine Bilirubin Negative (Negative) Urine Urobilinogen 0.2 (0.2-1.0) Ur Leukocyte Esterase Negative (Negative) Urine RBC 0-5 (0-5) /hpf Urine WBC 0-5 (0-5) /hpf Ur Squamous Epith Cells 5-10 H (0-5) /hpf Calcium Oxalate Crystal Few H (NONE) Urine Bacteria Few (FEW) /hpf Urine Mucus Moderate H (FEW) /hpf Urine HCG, Qual Negative (NEGATIVE) Meds: Medications Discontinued Medications Generic Name Dose Route Start Last Admin Trade Name Jamarq PRN Reason Stop Dose Admin Sodium Chloride 1,000 mls @ 999 mls/hr 07/10/20 19:38 07/10/20 20:05 Normal Saline IV 07/10/20 20:38 999 mls/hr NOW STA Administration Ondansetron HCl 4 mg 07/10/20 19:38 07/10/20 20:06 Zofran IVPUSH 07/10/20 19:39 4 mg ONETIME ONE Administration Sodium Chloride 10 ml 07/10/20 19:24 Saline Flush FLUSH ASDIRECTED PRN Keep Vein Open Sodium Chloride 10 ml 07/10/20 19:38 07/10/20 20:13 Saline Flush FLUSH 10 ml ASDIRECTED PRN Administration Keep Vein Open - Re-Assessments/Exams Free Text/Narrative Re-Assessment/Exam: 07/10/20 21:38 Hematology he was grossly unremarkable. Urinalysis showed no urinary tract infection. hCG test was negative. Post void residual showed 1 ml of urine in the bladder, therefore she is emptying her bladder. Discussed with patient that she is likely suffering from a viral gastroenteritis. Offered to Fan to go home with but she declined this. Recommend follow-up with her PCP if she continues to have this feeling of frequency or return to ER for worsening symptoms. Discharge instructions as documented. Departure - Departure Time of Disposition: 21:38 Disposition: Home, Self-Care 01 Condition: Good Clinical Impression: Urinary frequency Nausea and vomiting Qualifiers: Vomiting type: unspecified Vomiting Intractability: non-intractable Qualified Code(s): R11.2 - Nausea with vomiting, unspecified - Discharge Information *PRESCRIPTION DRUG MONITORING PROGRAM REVIEWED*: No *COPY OF PRESCRIPTION DRUG MONITORING REPORT IN PATIENT CHANDAN: No Instructions: Urinary Frequency, Adult, Nausea and Vomiting, Adult Referrals: Lyla Rojas PA-C [Primary Care Provider] - Forms: ED Department Discharge Additional Instructions: You were seen in the emergency department today for intermittent nausea, vomiting, decreased appetite, frequency of urination. Work-up included blood work, urinalysis, test, and a bladder scan. Results of your work-up were found to be normal. You are not . He not have a urinary tract infection. And you did completely empty your bladder when you voided in the emergency department. As we discussed, you are likely suffering from a viral gastroenteritis. Zofran for nausea was offered but declined. Recommend clear liquid diet and then advance as tolerated over the next 24 to 72 hours. If you continue to have frequency of urination, recommend follow-up with your primary care provider. Return to ER as needed. Sepsis Event Note (ED) - Evaluation Sepsis Screening Result: No Definite Risk
== END 2020-07-10 22:13 | disposition home or self-care (01) ==
LOC: JD.ED 19:04
DX: R35.0 Frequency of micturition (principal); R11.2 Nausea with vomiting, unspecified; R56.9 Unspecified convulsions; E66.9 Obesity, unspecified; Z68.41 Body mass index [BMI] 40.0-44.9, adult; Z91.048 Other nonmedicinal substance allergy status; Z88.4 Allergy status to anesthetic agent; Z88.5 Allergy status to narcotic agent; Z91.040 Latex allergy status; Z88.8 Allergy status to other drugs, medicaments and biological substances; Z79.899 Other long term (current) drug therapy
CPT/HCPCS: 36415; 51798; 80053; 81001; 81025; 83735; 85025; 96374; 99284; J2405; J7030; 99283

== ENCOUNTER 2020-07-18 07:01 | Day surgery (SDC) | payer MEDICAID ==
[~2020-07-18 07:01] MED LIST: Lactated Ringers 1,000 ML IV SCH; Lidocaine 1%/Sod Bicarbonate in NS 8.4% 1 ML Syringe IDERM PRN; Sodium Chloride 0.9% 10 ML Syringe FLUSH PRN
[2020-07-18] MEDS ORDERED: Midazolam 1 MG/ML 2 ML SDV ONE ×2 (07:04→08:42)
[2020-07-18] MEDS ORDERED: Ropivacaine 0.5% 5 MG/ML 30 ML SDV ONE (07:18)
--- NOTE | 2020-07-18 07:31 | PCM.PREANE ---
Preanesthetic Assessment - Procedure Proposed Procedure: Hemorrhoidectomy - Anesthesia/Transfusion/Family Hx Anesthesia History: Prior Anesthesia Reaction Type of Anesthesia Reaction: Other (see below) (pseudo seizures, per patient) - Review of Systems General: No Symptoms Pulmonary: No Symptoms Cardiovascular: No Symptoms Gastrointestinal: No Symptoms Neurological: No Symptoms Other: Reports: None - Physical Assessment NPO Status Date: 07/17/20 NPO Status Time: 22:30 Vital Signs: 123/69 124 HR 20RR 97% 97.8F Height: 1.63 m Weight: 125.1 kg ASA Class: 2 Mental Status: Alert & Oriented x3 Airway Class: Mallampati = 1 Dentition: Reports: Normal Dentition Thyro-Mental Finger Breadths: 3 Mouth Opening Finger Breadths: 3 ROM/Head Extension: Full Lungs: Clear to Auscultation, Normal Respiratory Effort Cardiovascular: Regular Rate, Regular Rhythm - Lab Values: Laboratory Last Values Urine HCG, Qual Negative (NEGATIVE) 07/18/20 07:00 - Allergies Allergies/Adverse Reactions: Allergies Allergy/AdvReac Type Severity Reaction Status Date / Time adhesive Allergy Severe Blisters Verified 07/17/20 11:56 benzocaine Allergy Severe Blisters Verified 07/17/20 11:56 hydrocodone [From Vicodin] Allergy Severe Vomiting Verified 07/17/20 11:56 iodine Allergy Severe Vomiting Verified 07/17/20 11:56 latex Allergy Severe Hives Verified 07/17/20 11:56 morphine Allergy Severe Cannot Verified 07/17/20 11:56 Remember promethazine [From Phenergan] Allergy Severe Seizure Verified 07/17/20 11:56 Iodinated Contrast Media Allergy Cannot Verified 07/17/20 11:56 Remember shellfish derived Allergy Decreased Verified 07/17/20 11:56 Urine Output nsaids Allergy Severe stoamch Uncoded 07/17/20 11:56 issues - Acknowledgements Anesthesia Type Planned: General Anesthesia, Spinal (saddle block) Pt an Appropriate Candidate for the Planned Anesthesia: Yes Alternatives and Risks of Anesthesia Discussed w Pt/Guardian: Yes Pt/Guardian Understands and Agrees with Anesthesia Plan: Yes PreAnesthesia Questionnaire - Past Health History Medical/Surgical History: Denies Medical/Surgical History Cardiovascular History: Reports: None Respiratory History: Reports: Asthma Gastrointestinal History: Reports: Hemorrhoids, PUD, Other (See Below) Other Gastrointestinal History: stomach ulcer Genitourinary History: Reports: None [employer]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: Musculoskeletal History: Reports: Back Pain, Chronic, Fibromyalgia Neurological History: Reports: Seizure, Other (See Below) Other Neuro History: pseudo seizure Psychiatric History: Reports: Anxiety, Bipolar, Depression, Psych Hospitalization(s), PTSD, Suicide Attempt, Suicidal Ideation, Other (See Below) Other Psychiatric History: borderline personality disorder, manic bipolar Endocrine/Metabolic History: Reports: Obesity/BMI 30+ Hematologic History: Reports: None Immunologic History: Reports: None Oncologic (Cancer) History: Reports: None Dermatologic History: Reports: None - Infectious Disease History Infectious Disease History: Reports: None - Past Surgical History Head Surgeries/Procedures: Reports: None HEENT Surgical History: Reports: Oral Surgery Cardiovascular Surgical History: Reports: None Respiratory Surgical History: Reports: None GI Surgical History: Reports: Cholecystectomy, Colonoscopy, EGD Female Surgical History: Reports: Section Male Surgical History: Reports: None Endocrine Surgical History: Reports: None Neurological Surgical History: Reports: None Oncologic Surgical History: Reports: None - SUBSTANCE USE Tobacco Use Status *Q: Former Tobacco User Recreational Drug Use History: Yes Recreational Drug Type: Reports: Marijuana/Hashish - HOME MEDS Home Medications: Home Meds lamoTRIgine [Lamotrigine] 200 mg PO BID 02/07/20 [History] Famotidine 20 mg PO DAILY PRN 03/25/20 [History] Prazosin HCl [Prazosin] 4 mg PO BEDTIME 03/25/20 [History] hydrOXYzine HCL [Atarax] 100 mg PO BEDTIME 03/25/20 [History] Amitriptyline [Elavil] 50 mg PO DAILY 07/17/20 [History] Cetirizine [ZyrTEC] 10 mg PO DAILY 07/17/20 [History] Cyclobenzaprine [Flexeril] 5 - 10 mg PO TID PRN 07/17/20 [History] Docusate Sodium [Stool Softener] 100 mg PO Q48H 07/17/20 [History] Pantoprazole Sodium [Protonix] 40 mg PO DAILY 07/17/20 [History] Venlafaxine [Effexor] 37.5 mg PO DAILY 07/17/20 [History] Venlafaxine [Venlafaxine HCl ER] 150 mg PO DAILY 07/17/20 [History] Vitamin C/Biotin [Hair, Skin and Nails Gummies] 1 tab PO DAILY 07/17/20 [History] - CURRENT (IN HOUSE) MEDS Current Meds: Current Medications Lactated Ringer's (Ringers, Lactated) 1,000 mls @ 125 mls/hr IV ASDIRECTED RODOLFO Lidocaine/Sodium Bicarbonate (Buffered Lidocaine 1% In Ns 8.4%) 0.25 ml IDERM ONETIME PRN PRN Reason: Prior to IV Start Sodium Chloride (Saline Flush) 10 ml FLUSH ASDIRECTED PRN PRN Reason: Keep Vein Open Discontinued Medications Midazolam HCl (Versed 1 Mg/Ml) Confirm Administered Dose 4 mg .ROUTE .STK-MED ONE Stop: 07/18/20 07:05 Ropivacaine (Naropin 0.5%) Confirm Administered Dose 30 ml .ROUTE .STK-MED ONE Stop: 07/18/20 07:19
[2020-07-18] MEDS ORDERED: fentaNYL 100 MCG/2 ML SDV ONE (08:28)
[2020-07-18] MEDS ORDERED: Propofol 200 MG/20 ML SDV ONE (08:50)
[2020-07-18] MEDS ORDERED: Lidocaine 1% 4 ML ONE (08:54)
[2020-07-18] MEDS ORDERED: Dexmedetomidine 200 MCG/2 ML SDV ONE (08:56)
[2020-07-18] MEDS ORDERED: Bupivacaine 0.5%/EPINEPHrine 1:200,000 50 ML MDV ONE (09:01)
[2020-07-18] MEDS ORDERED: Lidocaine 1% with EPINEPHrine 1:100,000 20 ML MDV ONE (09:01)
[2020-07-18] MEDS ORDERED: Ondansetron 4 MG/2 ML SDV ONE (09:06)
[2020-07-18] MEDS ORDERED: Lactated Ringers 1,000 ML ONE (09:26)
--- NOTE | 2020-07-18 10:04 | PCM.OPNOTE ---
- General Post-Op/Procedure Note Date of Surgery/Procedure: 07/18/20 Operative Procedure(s): Open hemorrhoidectomy Findings: Prominent hemorrhoid cushions on right superior and right inferior anal canal Pre Op Diagnosis: Hemorrhoids Post-Op Diagnosis: Same Anesthesia Technique: MAC, Spinal Primary Surgeon: Daphney Sanford Anesthesia Provider: Juan Hutson Pathology: Hemorrhoid cushions Fluid Replacement, Intraop: 1,100 Output, Urine Amount: 0 EBL in mLs: 100 Complications: none apparent Condition: Good
--- NOTE | 2020-07-18 10:07 | PCM.PRNOTE ---
- Free Text/Narrative Note: Operative Report Date of Surgery/Procedure: 07/18/20 Operative Procedure(s): Open hemorrhoidectomy Pre Op Diagnosis: Hemorrhoids Post-Op Diagnosis: Same Anesthesia Technique: MAC, Spinal with local Primary Surgeon: Daphney Sanford MD Anesthesia Provider: Juan Hutson CRNA Findings: Prominent hemorrhoid cushions on right superior and right inferior anal canal Pathology: Hemorrhoid cushions Fluid Replacement, Intraop: 1,100 Output, Urine Amount: 0 EBL in mLs: 100 Indication for the procedure: The patient is a 25-year-old female who presented to the outpatient clinic complaining of symptomatic hemorrhoids. The patient has already undergone hemorrhoid banding, but was not satisfied with the result. She wished to proceed with a hemorrhoidectomy. We discussed risks of sign ificant pain postoperatively well as risk to fecal continence. Her written consent was obtained Description of the procedure: The patient was taken back to the operating room and placed in supine position on the operating table. She had preoperative placement of spinal anesthesia with a saddle block. She was then positioned in lithotomy position and prepped and draped in standard surgical fashion. A timeout was performed We inserted an anoscope into the anal canal and noted a right posterior inferior and right lateral superior prominent hemorrhoid. The inferior hemorrhoid was then grasped and the skin and anoderm was opened in a V-shape. The dissection was carried down on top of the sphincter muscle to the level at the base of the hemorrhoid complex using the Bovie. A 3-0 Vicryl suture was then placed and the hemorrhoid complex was fully removed using the Bovie device. The mucosal defect was then reapproximated using a running 3-0 Vicryl suture. We then turned our attention to the superior lateral hemorrhoid complex. This was grasped and the skin was opened in likewise fashion using a scalpel and the Bovie device was used to dissect the hemorrhoid complex off of the sphincter muscle. Again the mucosa was then reapproximated using a running 3-0 Vicryl suture. Adequate hemostasis was achieved. The anal canal was then packed with a Gelfoam and dibucaine ointment. A anal block was then performed at the closure of the case using a mixed 1% lidocaine with epinephrine and 0.5% bupivacaine with epinephrine; 20 mL was administered. The patient tolerated the procedure well and was transported to the PACU in stable condition. Complications: none apparent Condition: Good Daphney Sanford MD General Surgery
[2020-07-18] MEDS ORDERED: Acetaminophen/oxyCODONE 325-5 MG Tab PO ONE (10:27)
[2020-07-18] MEDS ORDERED: fentaNYL 100 MCG/2 ML SDV IVPUSH ONE (11:00)
--- NOTE | 2020-07-18 11:41 | PCM.SN.2 ---
- Free Text/Narrative Note: Preoperative Subarachnoid saddle block Pre-op Dx: Internal and external Hemorroids Post-op Rx: Open hemorrhoidectomy Patient has been interviewed preoperatively, risk/benefits/alternatives discussed, questions answered. Patient received explanation of possible headache exacerbations, possible backache and soreness, verbalized understanding and agreed to proceed. Vital signs and labs reviewed. Consent signed. IV fluid bolus is being given. Patient is in preoperative room 7. Time out performed at 07:50. Mask, head cover, sterile gloves on. Chloraprep preparation, allowed to dry and sterile drape. Local infiltration with 1% Lidocaine at L3-L4 interspace. 1st attempt with 3.5" Pencan 25G needle. Unable to reach the subarachnoid space due to the patient's body habitus. 2nd attempt at trhe same interspace using 5" Quincke 22G needle. Unable to get CSF after several needle redirections. L2-L3 interspace has been infiltrated with 1% Lidocaine. 3rd attempt at L2-L3 interspace using 5", Quincke 22G needle, clear CSF obtained after several needle redirections. Transient paresthesia noted. 0.6 mls of 0.75% Bupivacaine given in a single bolus. Patient tolerated the procedure well. Patient remained in upright sitting position for the next 5 minutes to obtain sacral dermatomes coverage, and after that was positioned in semi-Pena with head of the bed at 45 degrees. Start of procedure: 07:50 End of procedure: 08:00
--- NOTE | 2020-07-18 12:33 | PCM.POSTAN ---
POST ANESTHESIA ASSESSMENT - MENTAL STATUS Mental Status: Somnolent - VITAL SIGNS Vital Signs: VSS post procedure 0945: 130/78, 99 HR, 23 RR, 98%, 97.7F - RESPIRATORY Respiratory Status: Respiratory Rate WNL, Airway Patent, O2 Saturation Stable - CARDIOVASCULAR CV Status: Pulse Rate WNL, Blood Pressure Stable - GASTROINTESTINAL GI Status: No Symptoms - PAIN Pain Score: 0 (post saddle block) - POST OP HYDRATION Hydration Status: Adequate & Stable
--- NOTE | 2020-07-18 12:57 | PCM48HPAN ---
Post Anesthesia Note - EVALUATION WITHIN 48HRS OF ANESTHETIC Vital Signs in Normal Range: Yes Patient Participated in Evaluation: Yes Respiratory Function Stable: Yes Airway Patent: Yes Hydration Status Stable: Yes Pain Control Satisfactory: Yes Nausea and Vomiting Control Satisfactory: Yes Mental Status Recovered: Yes Vital Signs: Last Vital Signs Temp 97.7 F 07/18/20 10:50 Pulse 117 H 07/18/20 11:20 Resp 17 07/18/20 11:20 BP 101/65 07/18/20 11:20 Pulse Ox 99 07/18/20 11:20 - COMMENTS/OBSERVATIONS Free Text/Narrative:: saddle block resolved completely, patient ambulates to the bathroom, no anesthesia complications noted
== END 2020-07-18 14:00 | disposition home or self-care (01) ==
LOC: JD.SDS 07:01
PROVIDERS: ATTEND Surgery
DX: K64.0 First degree hemorrhoids (principal); K29.60 Other gastritis without bleeding; Z79.899 Other long term (current) drug therapy; Z91.013 Allergy to seafood; Z88.5 Allergy status to narcotic agent; Z88.8 Allergy status to other drugs, medicaments and biological substances; Z91.040 Latex allergy status; Z87.891 Personal history of nicotine dependence
CPT/HCPCS: 46260; 81025; A9270; J2250; J2405; J2704; J3010; J3490; J7120; 00902; J2795

== ENCOUNTER 2020-07-19 12:48 | Emergency (ER) | payer MEDICAID ==
--- NOTE | 2020-07-19 13:28 | EDM.PDOC ---
ED HPI GENERAL MEDICAL PROBLEM - General Chief Complaint: General Stated Complaint: PAIN IN SHOULDER/NECK AND ARMS AFTER SURGERY Time Seen by Provider: 07/19/20 13:12 Source of Information: Reports: Patient, RN Notes Reviewed History Limitations: Reports: No Limitations - History of Present Illness INITIAL COMMENTS - FREE TEXT/NARRATIVE: Patient is a 25-year-old female who presents to the ED for her shoulder/neck/arm pain. Patient notes she had a hemorrhoidectomy done yesterday by Dr. Malcolm. Patient notes that around 4 PM she developed some pain into her neck and shoulders, she called ER at around 6 PM and was advised to come to the ER if she thought she needed to be seen and was also told that it could possibly be gas. She did take an antacid type medication at home, and that did not seem to help. She is taken 3 tablets of her Percocet ', and states that it does initially help with the pain, and her last dose was around 6 AM this morning. She notes that the pain is in her posterior neck and somewhat radiates down her arms, and further notes that when she puts her chin to her chest, that this seems to aggravate the pain. She did have a spinal tap for the surgery and notes that the DIRECTOR [employer] did have to pull her twice for this. She has had no fevers or chills, cough or shortness of breath, she states that she feels like she has been having hot flashes when the pain is at its worst, she is further had no nausea/vomiting/diarrhea or any other sick-like symptoms. She notes that the pain is a pretty intense pressure, and she does have some sharp intense pains at times as well. Upper Shoulder Pain Score (Numeric/FACES): 10 - Related Data Allergies Allergy/AdvReac Type Severity Reaction Status Date / Time adhesive Allergy Intermediate Blisters Verified 07/18/20 10:34 benzocaine Allergy Intermediate Blisters Verified 07/18/20 10:34 latex Allergy Intermediate Hives Verified 07/18/20 10:34 morphine Allergy Unknown Cannot Verified 07/18/20 10:34 Remember Iodinated Contrast Media Allergy Cannot Verified 07/17/20 11:56 Remember promethazine [From Phenergan] AdvReac Severe Seizure Verified 07/18/20 10:34 hydrocodone [From Vicodin] AdvReac Intermediate Vomiting Verified 07/18/20 10:34 iodine AdvReac Intermediate Vomiting Verified 07/18/20 10:34 shellfish derived AdvReac Decreased Verified 07/18/20 10:34 Urine Output nsaids AdvReac Mild stoamch Uncoded 07/18/20 10:34 issues Home Meds: Home Meds lamoTRIgine [Lamotrigine] 200 mg PO BID 02/07/20 [History] Famotidine 20 mg PO DAILY PRN 03/25/20 [History] Prazosin HCl [Prazosin] 4 mg PO BEDTIME 03/25/20 [History] hydrOXYzine HCL [hydrOXYzine] 100 mg PO BEDTIME 03/25/20 [History] Amitriptyline [Elavil] 50 mg PO DAILY 07/17/20 [History] Cetirizine [ZyrTEC] 10 mg PO DAILY 07/17/20 [History] Cyclobenzaprine [Flexeril] 5 - 10 mg PO TID PRN 07/17/20 [History] Docusate Sodium [Stool Softener] 100 mg PO Q48H 07/17/20 [History] Pantoprazole Sodium [Protonix] 40 mg PO DAILY 07/17/20 [History] Venlafaxine [Effexor] 37.5 mg PO DAILY 07/17/20 [History] Venlafaxine [Venlafaxine HCl ER] 150 mg PO DAILY 07/17/20 [History] Vitamin C/Biotin [Hair, Skin and Nails Gummies] 1 tab PO DAILY 07/17/20 [History] Acetaminophen/oxyCODONE [Percocet 325-10 MG] 1 - 2 tab PO Q6H PRN 14 Days #30 tab 07/18/20 [Rx] methylPREDNISolone [Medrol Dose Pack] 4 mg PO ASDIRECTED #1 dospk 07/19/20 [Rx] Past Medical History - Past Health History Medical/Surgical History: Denies Medical/Surgical History Cardiovascular History: Reports: None Respiratory History: Reports: Asthma Gastrointestinal History: Reports: Hemorrhoids, PUD, Other (See Below) Other Gastrointestinal History: stomach ulcer Genitourinary History: Reports: None 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: Musculoskeletal History: Reports: Back Pain, Chronic, Fibromyalgia Neurological History: Reports: Seizure, Other (See Below) Other Neuro History: pseudo seizure Psychiatric History: Reports: Anxiety, Bipolar, Depression, Psych Hospitalization(s), PTSD, Suicide Attempt, Suicidal Ideation, Other (See Below) Other Psychiatric History: borderline personality disorder, manic bipolar Endocrine/Metabolic History: Reports: Obesity/BMI 30+ Hematologic History: Reports: None Immunologic History: Reports: None Oncologic (Cancer) History: Reports: None Dermatologic History: Reports: None - Infectious Disease History Infectious Disease History: Reports: None - Past Surgical History Head Surgeries/Procedures: Reports: None HEENT Surgical History: Reports: Oral Surgery Cardiovascular Surgical History: Reports: None Respiratory Surgical History: Reports: None GI Surgical History: Reports: Cholecystectomy, Colonoscopy, EGD Female Surgical History: Reports: Section Endocrine Surgical History: Reports: None Neurological Surgical History: Reports: None Oncologic Surgical History: Reports: None Social & Family History - Family History Family Medical History: No Pertinent Family History - Tobacco Use Tobacco Use Status *Q: Never Tobacco User - Caffeine Use Caffeine Use: Reports: None - Recreational Drug Use Recreational Drug Type: Reports: Marijuana/Hashish Recreational Drug Use Frequency: Daily - Living Situation & Occupation Living situation: Reports: Single, with Significant Other (Fianc), with Family (Son) Occupation: Employed ([employer]) ED ROS GENERAL - Review of Systems Review Of Systems: Comprehensive ROS is negative, except as noted in HPI. ED EXAM, GENERAL - Physical Exam Exam: See Below Exam Limited By: No Limitations General Appearance: Alert, WD/WN, No Apparent Distress Neck: Normal Inspection, Supple, Non-Tender, Full Range of Motion Respiratory/Chest: No Respiratory Distress, Lungs Clear, Normal Breath Sounds, No Accessory Muscle Use, Chest Non-Tender Cardiovascular: Normal Peripheral Pulses, Regular Rate, Rhythm, No Edema Peripheral Pulses: 2+: Radial (L), Radial (R) Neurological: Alert, Oriented, Normal Cognition, No Motor/Sensory Deficits Psychiatric: Normal Affect, Normal Mood Skin Exam: Warm, Dry, Intact, Normal Color, No Rash Course - Vital Signs Last Recorded V/S: Last Vital Signs Temp 96.8 F L 07/19/20 13:00 Pulse 115 H 07/19/20 13:00 Resp 24 H 07/19/20 13:00 BP 150/101 H 07/19/20 13:00 Pulse Ox 100 07/19/20 13:00 - Re-Assessments/Exams Free Text/Narrative Re-Assessment/Exam: 07/19/20 13:28 Patient presents to the ED for her neck/shoulder/arm pain. I did talk with Dr. Spencer and he suggests that this could be L'hermites sign. I have called Dr. Malcolm as well to make her aware that the patient is in the ER at this time; since she just had surgery yesterday. We will try to treat more for her headache type pain and we will try 10mg IM dexamethasone, along with 1 mg IM Dilaudid and try to send her home with a course of steroids for the aggravation s/p spinal she had yesterday. Departure - Departure Time of Disposition: 13:38 Disposition: Home, Self-Care 01 Condition: Good Clinical Impression: Lhermitte's sign positive, Postoperative spinal headache - Discharge Information *PRESCRIPTION DRUG MONITORING PROGRAM REVIEWED*: No *COPY OF PRESCRIPTION DRUG MONITORING REPORT IN PATIENT CHANDAN: No Instructions: Spinal Headache Referrals: Daphney Sanford MD [Primary Care Provider] - Forms: ED Department Discharge, ED Return to Work/School Form Additional Instructions: You were evaluated in the ER today for your neck/arm/head pain. This is most likely due to the spinal block that you had performed yesterday, sometimes when the needle enters the arachnoid space, it can cause some aggravation causing many of the symptoms you are experiencing at today's visit. You have been given some IM medications for pain management, and will be started on a course of steroids for ongoing management to help reduce the irritation/inflammation. Please take the dexamethasone as directed, and continue to take your Percocet as directed from your surgeon. Highly recommend you follow-up with Dr. Malcolm, sometime early next week for reevaluation and to make sure everything is getting better. She was notified of your ER visit today, please call the [facility] at [phone], to obtain an appoint with her. Try to increase your oral fluid intake over the next few days as well. Please return to the ER at any time if symptoms change or worsen. Sepsis Event Note (ED) - Evaluation Sepsis Screening Result: No Definite Risk - Focused Exam Vital Signs: Vital Signs Temp Pulse Resp BP Pulse Ox 07/19/20 13:00 96.8 F L 115 H 24 H 150/101 H 100
[2020-07-19] MEDS ORDERED: Dexamethasone 10 MG/ML SDV IM ONE (13:37)
[2020-07-19] MEDS ORDERED: HYDROmorphone 1 MG/ML Syringe IM ONE (13:37)
== END 2020-07-19 14:39 | disposition home or self-care (01) ==
LOC: JD.ED 12:48 → SUPCPDRO 12:48 → JD.ED 14:39
DX: G97.1 Other reaction to spinal and lumbar puncture (principal); J45.909 Unspecified asthma, uncomplicated; E66.9 Obesity, unspecified; Z68.42 Body mass index [BMI] 45.0-49.9, adult; Z91.048 Other nonmedicinal substance allergy status; Z88.4 Allergy status to anesthetic agent; Z91.040 Latex allergy status; Z88.5 Allergy status to narcotic agent; Z91.041 Radiographic dye allergy status; Z88.8 Allergy status to other drugs, medicaments and biological substances; Z91.013 Allergy to seafood; Z79.899 Other long term (current) drug therapy; R29.898 Other symptoms and signs involving the musculoskeletal system
CPT/HCPCS: 96372; 99283; J1100; J1170

== ENCOUNTER 2020-07-21 20:20 | Emergency (ER) | payer MEDICAID ==
[2020-07-21] MEDS ORDERED: Ondansetron 4 MG/2 ML SDV IVPUSH ONE (20:58)
[2020-07-21] MEDS ORDERED: methylPREDNISolone Sodium Succinate 125 MG/2 ML SDV IVPUSH ONE (20:58)
[2020-07-21] MEDS ORDERED: Sodium Chloride 0.9% 1,000 ML IV ONE (20:58)
--- NOTE | 2020-07-21 21:05 | EDM.PDOC ---
ED HPI GENERAL MEDICAL PROBLEM - General Chief Complaint: General Stated Complaint: [facility] Time Seen by Provider: 07/21/20 20:31 Source of Information: Reports: Patient History Limitations: Reports: No Limitations - History of Present Illness INITIAL COMMENTS - FREE TEXT/NARRATIVE: Ms. Perez is a pleasant 25-year-old woman who, medical records indicate, underwent an open hemorrhoidectomy this past 07/18/2020. She states that she received epidural anesthesia, plus something else to sedate her. She was discharged home the same day with a prescription for Percocet , 1-2 tabs po Q6 hrs prn pain, #14, which she states she has been taking as prescribed. The patient was then seen in this ED the following day, , 07/19/2020, stating that on the afternoon of her discharge, she had developed pain in her posterior neck and bilateral shoulders, with radiation down both of her arms. She noted that her symptoms were worse if she tipped her chin to her chest. No fever or chills, cough, or dyspnea, nausea, vomiting, or diarrhea. She was found to be mildly hypertensive at 150/101, tachycardic at 115 bpm, and tachypneic at 24 rpm. She was afebrile, saturating 100% on room air. Her physical exam was unremarkable, finding a supple neck with no tenderness or limitation of range of motion. Consideration was given that the patient may h ave been experiencing Lhermitte's sign. Her case was discussed with her surgeon. She was treated with 1 mg of IM Dilaudid and 10 mg of IM dexamethasone before being discharged home with a prescription for a Medrol Dosepak. The patient now returns to the ED stating that her pain improved after she was seen in the ED, but a few hours later returned. She states that she developed nausea and vomiting last night. She states that she did not read her ED discharge instructions until this afternoon, at which time she learned of the prescription for the Medrol Dosepak, but by that time, she states that it was too late to pick it up from the pharmacy. She states that she still has the posterior neck and bilateral shoulder pain, but her primary complaint is the nausea and vomiting. Here in the ED, the patient's initial BP is found to be slightly elevated at 143/78, otherwise, she is hemodynamically stable, afebrile, saturating 100% on room air. The patient's PCP is BRENDA Zuniga. Her Surgeon is Dr. Nancy Sanford. Her Psychiatrist is Dr. Kassi Aranda. She already received an influenza vaccine this season. Neck Pain Score (Numeric/FACES): 7 - Related Data Allergies Allergy/AdvReac Type Severity Reaction Status Date / Time adhesive Allergy Intermediate Blisters Verified 07/21/20 20:29 benzocaine Allergy Intermediate Blisters Verified 07/21/20 20:29 latex Allergy Intermediate Hives Verified 07/21/20 20:29 morphine Allergy Unknown Cannot Verified 07/21/20 20:29 Remember Iodinated Contrast Media Allergy Cannot Verified 07/21/20 20:29 Remember promethazine [From Phenergan] AdvReac Severe Seizure Verified 07/21/20 20:29 hydrocodone [From Vicodin] AdvReac Intermediate Vomiting Verified 07/21/20 20:29 iodine AdvReac Intermediate Vomiting Verified 07/21/20 20:29 shellfish derived AdvReac Decreased Verified 07/21/20 20:29 Urine Output nsaids AdvReac Mild stoamch Uncoded 07/21/20 20:29 issues Home Meds: Home Meds lamoTRIgine [Lamotrigine] 200 mg PO BID 02/07/20 [History] Famotidine 20 mg PO DAILY PRN 03/25/20 [History] Prazosin HCl [Prazosin] 4 mg PO BEDTIME 03/25/20 [History] hydrOXYzine HCL [hydrOXYzine] 100 mg PO BEDTIME 03/25/20 [History] Amitriptyline [Elavil] 50 mg PO DAILY 07/17/20 [History] Cetirizine [ZyrTEC] 10 mg PO DAILY 07/17/20 [History] Cyclobenzaprine [Flexeril] 5 - 10 mg PO TID PRN 07/17/20 [History] Docusate Sodium [Stool Softener] 100 mg PO Q48H 07/17/20 [History] Pantoprazole Sodium [Protonix] 40 mg PO DAILY 07/17/20 [History] Venlafaxine [Effexor] 37.5 mg PO DAILY 07/17/20 [History] Venlafaxine [Venlafaxine HCl ER] 150 mg PO DAILY 07/17/20 [History] Vitamin C/Biotin [Hair, Skin and Nails Gummies] 1 tab PO DAILY 07/17/20 [History] Acetaminophen/oxyCODONE [Percocet 325-10 MG] 1 - 2 tab PO Q6H PRN 14 Days #30 tab 07/18/20 [Rx] methylPREDNISolone [Medrol Dose Pack] 4 mg PO ASDIRECTED #1 dospk 07/19/20 [Rx] Ondansetron [Zofran ODT] 1 tab PO Q8H PRN #10 tab.dis 07/22/20 [Rx] Past Medical History Gastrointestinal History: Reports: Hemorrhoids (s/p open right ectomy 07/18/2020), PUD Psychiatric History: Reports: Anxiety, Bipolar, Depression, Psych Hospitalization(s), PTSD, Suicide Attempt, Other (See Below) (Borderline personality disorder. Pseudoseizures. Fibromyalgia.) Endocrine/Metabolic History: Reports: Obesity/BMI 30+ - Past Surgical History HEENT Surgical History: Reports: Oral Surgery (dental extractions) GI Surgical History: Reports: Cholecystectomy (2010 or 2011), Colonoscopy (x around 4), EGD (x around 4), Other (See Below) (Open hemorrhoidectomy 07/18/2020) Female Surgical History: Reports: Section (x 1) Social & Family History - Tobacco Use Tobacco Use Status *Q: Former Tobacco User Tobacco Use Within Last Twelve Months: Vaping (THC x 2019) Years of Tobacco use: 13 Packs/Tins Daily: 0.5 Month/Year Tobacco Last Used: Quit Feb 2020 - Caffeine Use Caffeine Use: Reports: None - Alcohol Use Alcohol Use History: No - Recreational Drug Use Recreational Drug Use: Yes Drug Use in Last 12 Months: Yes Recreational Drug Type: Reports: Marijuana/Hashish (smokes near-daily) - Living Situation & Occupation Living situation: Reports: Single, with Significant Other (Fianc), with Family (Son + grandfather) Occupation: Unemployed ED ROS GENERAL - Review of Systems Review Of Systems: Comprehensive ROS is negative, except as noted in HPI. ED EXAM, GENERAL - Physical Exam Exam: See Below Exam Limited By: No Limitations General Appearance: Alert, WD/WN, No Apparent Distress Eye Exam: Bilateral Eye: EOMI, Normal Inspection Ears: Normal External Exam, Normal Canal, Hearing Grossly Normal, Normal TMs Nose: Normal Inspection, Normal Mucosa, No Blood Throat/Mouth: Normal Inspection, Normal Lips, Normal Teeth, Normal Gums, Normal Oropharynx, Normal Voice, No Airway Compromise Head: Atraumatic, Normocephalic Neck: Normal Inspection, Supple, Non-Tender, Full Range of Motion Respiratory/Chest: No Respiratory Distress, Lungs Clear, Normal Breath Sounds, No Accessory Muscle Use Cardiovascular: Normal Peripheral Pulses, Regular Rate, Rhythm, No Edema, No Gallop, No JVD, No Murmur, No Rub Peripheral Pulses: 3+: Radial (L), Radial (R) GI/Abdominal: Normal Bowel Sounds, Soft, Non-Tender, No Organomegaly, No Distention, No Abnormal Bruit, No Mass Back Exam: Normal Inspection, Full Range of Motion, Other (2 epidural injection sites noted over lumbar spine) Extremities: Normal Inspection, Normal Range of Motion, No Pedal Edema, Normal Capillary Refill Neurological: Alert, Oriented, Normal Cognition, No Motor/Sensory Deficits Psychiatric: Flat Affect Skin Exam: Warm, Dry, Intact, Normal Color, No Rash Course - Vital Signs Last Recorded V/S: Last Vital Signs Temp 37.1 C 07/21/20 20:24 Pulse 99 07/21/20 20:24 Resp 20 07/21/20 20:24 BP 143/78 H 07/21/20 20:24 Pulse Ox 100 07/21/20 20:24 - Orders/Labs/Meds Orders: Active Orders 24 hr Category Date Time Status Abdomen Ltd [US] Stat Exams 07/21/20 23:19 Taken HEPATITIS PANEL (4) [REF] Stat Lab 07/21/20 23:30 Received Labs: Laboratory Tests 07/21/20 07/21/20 07/21/20 Range/Units 20:35 20:35 20:35 WBC 11.93 H (3.98-10.04) K/mm3 RBC 4.82 (3.98-5.22) M/mm3 Hgb 13.2 (11.2-15.7) gm/dl Hct 41.7 (34.1-44.9) % MCV 86.5 (79.4-94.8) fl MCH 27.4 (25.6-32.2) pg MCHC 31.7 L (32.2-35.5) g/dl RDW Std Deviation 46.4 H (36.4-46.3) fL Plt Count 537 H (182-369) K/mm3 MPV 8.9 L (9.4-12.3) fl Neutrophils % (Manual) 73 H (40-60) % Band Neutrophils % 0 (0-10) % Lymphocytes % (Manual) 22 (20-40) % Atypical Lymphs % 0 % Monocytes % (Manual) 4 (2-10) % Eosinophils % (Manual) 1 (0.7-5.8) % Basophils % (Manual) 0 L (0.1-1.2) Platelet Estimate Increased Plt Morphology Comment Normal RBC Morph Comment Normal PT 10.7 (9.7-12.0) SECONDS INR 1.00 Sodium 140 (136-145) mEq/L Potassium 3.2 L (3.5-5.1) mEq/L Chloride 100 (98-107) mEq/L Carbon Dioxide 24 (21-32) mEq/L Anion Gap 19.2 H (5-15) BUN 11 (7-18) mg/dL Creatinine 1.0 (0.55-1.02) mg/dL Est Cr Clr Drug Dosing 74.26 mL/min Estimated GFR (MDRD) > 60 (>60) mL/min BUN/Creatinine Ratio 11.0 L (14-18) Glucose 105 (74-106) mg/dL Calcium 9.5 (8.5-10.1) mg/dL Magnesium 1.9 (1.8-2.4) mg/dl Total Bilirubin 1.6 H (0.2-1.0) mg/dL Direct Bilirubin (0.0-0.2) mg/dl AST 384 H (15-37) U/L ALT 534 H (14-59) U/L Alkaline Phosphatase 223 H (46-116) U/L Ammonia (11-32) umol/L Total Protein 8.0 (6.4-8.2) g/dl Albumin 4.0 (3.4-5.0) g/dl Globulin 4.0 gm/dL Albumin/Globulin Ratio 1.0 (1-2) 07/21/20 07/21/20 Range/Units 20:35 22:30 WBC (3.98-10.04) K/mm3 RBC (3.98-5.22) M/mm3 Hgb (11.2-15.7) gm/dl Hct (34.1-44.9) % MCV (79.4-94.8) fl MCH (25.6-32.2) pg MCHC (32.2-35.5) g/dl RDW Std Deviation (36.4-46.3) fL Plt Count (182-369) K/mm3 MPV (9.4-12.3) fl Neutrophils % (Manual) (40-60) % Band Neutrophils % (0-10) % Lymphocytes % (Manual) (20-40) % Atypical Lymphs % % Monocytes % (Manual) (2-10) % Eosinophils % (Manual) (0.7-5.8) % Basophils % (Manual) (0.1-1.2) Platelet Estimate Plt Morphology Comment RBC Morph Comment PT (9.7-12.0) SECONDS INR Sodium (136-145) mEq/L Potassium (3.5-5.1) mEq/L Chloride (98-107) mEq/L Carbon Dioxide (21-32) mEq/L Anion Gap (5-15) BUN (7-18) mg/dL Creatinine (0.55-1.02) mg/dL Est Cr Clr Drug Dosing mL/min Estimated GFR (MDRD) (>60) mL/min BUN/Creatinine Ratio (14-18) Glucose (74-106) mg/dL Calcium (8.5-10.1) mg/dL Magnesium (1.8-2.4) mg/dl Total Bilirubin (0.2-1.0) mg/dL Direct Bilirubin 1.10 H (0.0-0.2) mg/dl AST (15-37) U/L ALT (14-59) U/L Alkaline Phosphatase (46-116) U/L Ammonia < 10 L (11-32) umol/L Total Protein (6.4-8.2) g/dl Albumin (3.4-5.0) g/dl Globulin gm/dL Albumin/Globulin Ratio (1-2) Meds: Medications Discontinued Medications Generic Name Dose Route Start Last Admin Trade Name Freq PRN Reason Stop Dose Admin Sodium Chloride 1,000 mls @ 999 mls/hr 07/21/20 20:58 07/21/20 21:20 Normal Saline IV 07/21/20 21:58 999 mls/hr ONETIME ONE Administration Methylprednisolone Sodium Succinate 125 mg 07/21/20 20:58 07/21/20 21:21 Solu-Medrol IVPUSH 07/21/20 20:59 125 mg ONETIME ONE Administration Ondansetron HCl 4 mg 07/21/20 20:58 07/21/20 21:21 Zofran IVPUSH 07/21/20 20:59 4 mg ONETIME ONE Administration Potassium Chloride 40 meq 07/21/20 22:26 07/21/20 22:37 Klor-Con M20 PO 07/21/20 22:27 40 meq ONETIME ONE Administration - Re-Assessments/Exams Free Text/Narrative Re-Assessment/Exam: 07/21/20 20:59 As above, the patient developed head and neck pain on 07/19/2020, following a hemorrhoidectomy on 07/18/2020 with anesthesia by epidural. She had been prescribed Percocet . She was seen in this ED on 07/19/2020 and treated with IV Dilaudid and IM dexamethasone before being discharged home with a prescription for a Medrol Dosepak. She now presents to the ED by EMS with continued head and shoulder pain, along with nausea and vomiting that developed last night. She acknowledges that she did not read her discharge instructions or fill her prescription for the Medrol Dosepak. Her physical exam is grossly unremarkable. I suspect that the patient's nausea and vomiting are due to the Percocet that she has been taking. I have ordered a work-up that includes a CBC, CMP, and magnesium level, to make sure that she does not have any significant abnormalities that need to be corrected, and in the meantime, the patient will be given 125 mg of IV Solu-Medrol, 4 mg of IV Zofran, and 1 L of IV fluid. The patient is fully expecting to be admitted to the hospital, however, unless her labs return with an abnormality that demands admission, I will need to discharge her home after treatment. The patient is already upset about this. She states that she does not have a ride, a credit or debit card, nor any money to fill a prescription; we may need to discharge her with some Zofran in-hand under compassionate care. 07/21/20 22:00 The patient's CBC is remarkable for leukocytosis of 11.93, but with 0% bandemia. She has thrombocytosis of 537,000, with the remainder of her CBC being unremarkable. Her CMP is remarkable for hypokalemia of 3.2, and an anion gap elevated at 19.2, but with a bicarbonate normal at 24. Her TBil is elevated at 1.6, her AST/ALT elevated at 384/534, respectively, and her alkaline phosphatase is mildly elevated at 123, with the remainder of her CMP being unremarkable. Her magnesium level is within normal limits at 1.9. Reviewing prior labs, all of the patient's LFTs were normal on 07/10/2020. Based on the above, I will order a direct bilirubin, an INR, and a venous ammonia level. 07/21/20 22:39 Lab abnormalities discussed with the patient. She states that she has been taking the Percocet 10/325 as prescribed, but adamantly denies taking any other additional pain medications, such as acetaminophen or ibuprofen. She acknowledges that she has been vaping THC since 2019, and states that she ordinarily smokes marijuana daily, but the last time she did so was prior to her procedure on 07/18/2020. She denies drinking alcohol or taking any other recreational drugs. The patient states that she received epidural anesthesia, as well as something else to sedate her. I reviewed the anesthesia records from 07/18/2020. As far as I can tell, the patient received lidocaine and bupivacaine for her epidural. She may have also received buffered lidocaine, Versed, and ropivacaine either before or during her procedure. I do not see the administration of any other medications. In the meantime, the patient states that her nausea has substantially improved following the IV Zofran. 07/21/20 23:02 The patient's DBil is slightly elevated at 1.10. Her PT/INR are within normal limits at 0.7/1.00. Her her ammonia level is undetectably low. 07/21/20 23:21 Case discussed with Rachid at [facility] at 23:10. Case then discussed with Dr. Hernandez, Bariatric Surgeon at [facility], at 23:15. He recommended that I obtain an ultrasound of the right upper quadrant, and check a hepatitis panel. Unless there is a significant abnormality on the ultrasound, the patient should then be able to be discharged home with follow- up with her PCP. These have been ordered, however, the hepatitis panel is a send-out test. 07/22/20 00:53 Ultrasound of the right upper quadrant is read by [facility] as: 1. Heterogeneously hypoechoic indeterminate solid nodule 2.3 cm in diameter within the right lobe of the liver. Further work-up may be indicated. 2. Probable fatty liver. 07/22/20 00:54 Ultrasound results discussed with the patient. As above, while not completely normal, the ultrasound does not explain the sudden increase in the patient's LFTs. I will discharge her home with a prescription for Zofran ODT, and the recommendation that she follow-up with her PCP not this week, but next, by which time the hepatitis panel results should be in. In the meantime, I would have the patient not take any acetaminophen or alcohol, however, she states that she does not, anyway. Departure - Departure Time of Disposition: 00:59 Disposition: Home, Self-Care 01 Condition: Good Clinical Impression: Elevated LFTs, Hypokalemia, Neck pain, Shoulder pain Nausea & vomiting Qualifiers: Vomiting type: unspecified Vomiting Intractability: non-intractable Qualified Code(s): R11.2 - Nausea with vomiting, unspecified - Discharge Information *PRESCRIPTION DRUG MONITORING PROGRAM REVIEWED*: Not Applicable *COPY OF PRESCRIPTION DRUG MONITORING REPORT IN PATIENT CHANDAN: Not Applicable Referrals: Lyla Rojas PA-C [Physician Energy Management Specialist] - Kassi Aranda MD [Ordering Only Provider] - Daphney Sanford MD [Physician] - Forms: ED Department Discharge Additional Instructions: You were seen in the emergency room for mood neck and shoulder pain, with the addition of nausea and vomiting. Work-up in the ER included several blood tests, an ultrasound of your upper right abdomen, and a send-out hepatitis panel. Your work-up found your potassium to be mildly depressed at 3.2, but your liver enzymes to be elevated. Your liver enzymes were completely normal on 07/10/2020. Your case was discussed with a buttonhole maker at [facility], who recommended that we get an ultrasound of your upper right abdomen, and a hepatitis panel. The ultrasound of your upper right abdomen showed a nodule in your liver, and, likely, a fatty liver. A fatty liver can cause an elevation in your liver enzymes, but it would not be a sudden increase between 07/10/2020 and today, therefore the cause of the sudden increase in your liver enzymes is unknown. A prescription for the antinausea medicine Zofran ODT has been sent to the [facility], located at [address] [place] [address]. You may dissolve 1 tablet of Zofran on your tongue up to every 8 hours, as needed for nausea/vomiting. We recommend that you follow-up with your PCP, BRENDA Zuniga, the week of 07/30/2020, by which time your hepatitis panel results should be in. If any other problems, please do not hesitate to return to the ER. Sepsis Event Note (ED) - Evaluation Sepsis Screening Result: No Definite Risk - Focused Exam Vital Signs: Vital Signs Temp Pulse Resp BP Pulse Ox 07/21/20 20:24 37.1 C 99 20 143/78 H 100 - My Orders Last 24 Hours: My Active Orders 07/21/20 23:19 Abdomen Ltd [US] Stat 07/21/20 23:30 HEPATITIS PANEL (4) [REF] Stat - Assessment/Plan Last 24 Hours: My Active Orders 07/21/20 23:19 Abdomen Ltd [US] Stat 07/21/20 23:30 HEPATITIS PANEL (4) [REF] Stat
[2020-07-21] MEDS ORDERED: Potassium Chloride 20 MEQ Tab.ER PO ONE (22:26)
--- NOTE | 2020-07-22 18:14 | US ---
Limited abdominal ultrasound: Multiple real-time images of the upper right abdomen were obtained. Comparison: No prior abdominal ultrasound or CT abdomen is available. Findings: Liver is somewhat echogenic most likely due to fatty infiltration. Hypoechoic abnormality is noted within the right lobe of the liver measuring 2.2 x 2 3 x 2.4 cm. No additional abnormality is appreciated within the liver. Previous cholecystectomy is noted. Common bile duct is slightly prominent likely residual from prior cholecystectomy. Right kidney shows no hydronephrosis or mass. Right kidney has a length of 11.1 cm. Pancreas is incompletely seen. Visualized portions of the pancreas show no discrete abnormality. Inferior vena cava is patent. Main portal vein shows normal hepatopedal flow. Impression: 1. Fatty infiltration within the liver. 2. 2.4 cm mass within the right lobe of the liver. CT abdomen is recommended with IV contrast. Diagnostic code #9 I agree with preliminary report from [facility], finalized on 06/21/20, 1:41 AM DIRECTOR STRATEGIC ACCOUNT MANAGEMENT
== END 2020-07-22 01:17 | disposition home or self-care (01) ==
LOC: JD.ED 20:20
DX: M54.2 Cervicalgia (principal); M25.511 Pain in right shoulder; M25.512 Pain in left shoulder; E87.6 Hypokalemia; R11.2 Nausea with vomiting, unspecified; R79.89 Other specified abnormal findings of blood chemistry; E66.9 Obesity, unspecified; Z87.891 Personal history of nicotine dependence; Z68.42 Body mass index [BMI] 45.0-49.9, adult; Z91.048 Other nonmedicinal substance allergy status; Z88.4 Allergy status to anesthetic agent; Z91.040 Latex allergy status; Z88.5 Allergy status to narcotic agent; Z91.041 Radiographic dye allergy status; Z88.8 Allergy status to other drugs, medicaments and biological substances; Z91.013 Allergy to seafood; Z79.899 Other long term (current) drug therapy
CPT/HCPCS: 36415; 76705; 80053; 80074; 82140; 82248; 83735; 85007; 85027; 85610; 96374; 96375; 99284; A9270; J2405; J2930; J7030

== ENCOUNTER 2020-07-28 08:53 | Emergency (ER) | payer MEDICAID ==
[2020-07-28] MEDS ORDERED: Ondansetron 4 MG/2 ML SDV IVPUSH ONE (09:48)
[2020-07-28] MEDS ORDERED: Sodium Chloride 0.9% 10 ML Syringe FLUSH PRN (09:48)
[2020-07-28] MEDS ORDERED: Sodium Chloride 0.9% 1,000 ML IV SCH (10:00)
--- NOTE | 2020-07-28 11:28 | EDM.PDOC ---
ED HPI GENERAL MEDICAL PROBLEM - General Chief Complaint: Gastrointestinal Problem Stated Complaint: EYES YELLOWING AND VOMITING Time Seen by Provider: 07/28/20 09:26 Source of Information: Reports: Patient, RN Notes Reviewed - History of Present Illness INITIAL COMMENTS - FREE TEXT/NARRATIVE: 25 yr old female has been ill with nausea, vomiting, diarrhea that hit hard last evening. She was also ill with vomiting for 2 days over a week ago and than got better until last evening. She states when seen here in the ED over a week ago her "liver enzymes were elevated" She does not drink alcohol. No current abd pain. She is nauseated this morning but not actively vomiting. Abdomen Pain Score (Numeric/FACES): 5 - Related Data Allergies Allergy/AdvReac Type Severity Reaction Status Date / Time adhesive Allergy Severe Blisters Verified 07/28/20 09:13 benzocaine Allergy Severe Blisters Verified 07/28/20 09:13 Iodinated Contrast Media Allergy Severe Cannot Verified 07/28/20 09:13 Remember latex Allergy Severe Hives Verified 07/28/20 09:13 morphine Allergy Severe Cannot Verified 07/28/20 09:13 Remember hydrocodone [From Vicodin] AdvReac Severe Vomiting Verified 07/28/20 09:13 iodine AdvReac Severe Vomiting Verified 07/28/20 09:13 promethazine [From Phenergan] AdvReac Severe Seizure Verified 07/28/20 09:13 shellfish derived AdvReac Severe Decreased Verified 07/28/20 09:13 Urine Output nsaids AdvReac Severe stoamch Uncoded 07/28/20 09:13 issues Home Meds: Home Meds lamoTRIgine [Lamotrigine] 200 mg PO BID 02/07/20 [History] Famotidine 20 mg PO DAILY PRN 03/25/20 [History] Prazosin HCl [Prazosin] 4 mg PO BEDTIME 03/25/20 [History] hydrOXYzine HCL [hydrOXYzine] 100 mg PO BEDTIME 03/25/20 [History] Amitriptyline [Elavil] 50 mg PO DAILY 07/17/20 [History] Cetirizine [ZyrTEC] 10 mg PO DAILY 07/17/20 [History] Cyclobenzaprine [Flexeril] 5 - 10 mg PO TID PRN 07/17/20 [History] Docusate Sodium [Stool Softener] 100 mg PO Q48H 07/17/20 [History] Pantoprazole Sodium [Protonix] 40 mg PO DAILY 07/17/20 [History] Venlafaxine [Effexor] 37.5 mg PO DAILY 07/17/20 [History] Venlafaxine [Venlafaxine HCl ER] 150 mg PO DAILY 07/17/20 [History] Vitamin C/Biotin [Hair, Skin and Nails Gummies] 1 tab PO DAILY 07/17/20 [History] Acetaminophen/oxyCODONE [Percocet 325-10 MG] 1 - 2 tab PO Q6H PRN 14 Days #30 tab 07/18/20 [Rx] methylPREDNISolone [Medrol Dose Pack] 4 mg PO ASDIRECTED #1 dospk 07/19/20 [Rx] Ondansetron [Zofran ODT] 1 tab PO Q8H PRN #10 tab.dis 07/22/20 [Rx] Past Medical History - Past Health History Medical/Surgical History: Denies Medical/Surgical History Cardiovascular History: Reports: None Respiratory History: Reports: Asthma, Bronchitis, Recurrent Gastrointestinal History: Reports: Hemorrhoids, PUD Other Gastrointestinal History: stomach ulcer Genitourinary History: Reports: UTI, Recurrent [employer] History: Reports: Musculoskeletal History: Reports: Back Pain, Chronic, Fracture, Fibromyalgia Neurological History: Reports: Head Trauma, Seizure, Other (See Below) Other Neuro History: pseudo seizure Psychiatric History: Reports: Anxiety, Bipolar, Depression, Psych Hospitalization(s), PTSD, Suicide Attempt, Other (See Below) Other Psychiatric History: borderline personality disorder, manic bipolar Endocrine/Metabolic History: Reports: Obesity/BMI 30+ Hematologic History: Reports: Anemia Immunologic History: Reports: None Oncologic (Cancer) History: Reports: None Dermatologic History: Reports: Other (See Below) Other Dermatologic History: LUPUS--skin iritation - Infectious Disease History Infectious Disease History: Reports: None - Past Surgical History HEENT Surgical History: Reports: Oral Surgery Other HEENT Surgeries/Procedures: wisdom teeth, tooth removal. GI Surgical History: Reports: Cholecystectomy, Colonoscopy, EGD, Other (See Below) Other GI Surgeries/Procedures: hemorrhoid removal sx Female Surgical History: Reports: Section Social & Family History - Family History Family Medical History: No Pertinent Family History - Tobacco Use Tobacco Use Status *Q: Never Tobacco User Second Hand Smoke Exposure: No - Caffeine Use Caffeine Use: Reports: None - Recreational Drug Use Recreational Drug Use: Yes Recreational Drug Type: Reports: Marijuana/Hashish - Living Situation & Occupation Living situation: Reports: Single, with Significant Other (Fianc), with Family (Son + grandfather) Occupation: Unemployed ED ROS GENERAL - Review of Systems Review Of Systems: See Below Constitutional: Denies: Fever, Chills, Diaphoresis HEENT: Reports: No Symptoms Respiratory: Denies: Shortness of Breath Cardiovascular: Denies: Chest Pain GI/Abdominal: Reports: Abdominal Pain, Nausea, Vomiting. Denies: Diarrhea, Hematochezia, Melena Musculoskeletal: Denies: Back Pain Skin: Reports: No Symptoms Neurological: Reports: No Symptoms ED EXAM, GI/ABD - Physical Exam Exam: See Below General Appearance: Alert, No Apparent Distress Throat/Mouth: Other (oral mucosa mildly dry) Head: Atraumatic. No: Facial Swelling Neck: Supple Respiratory/Chest: No Respiratory Distress, Lungs Clear, Normal Breath Sounds Cardiovascular: Tachycardia GI/Abdominal Exam: Soft, Tender (mild tenderness upper mid abd, very minimal tenderness RUQ, lower abd soft and nontender) Back Exam: No: CVA Tenderness (L), CVA Tenderness (R) Neurological: Alert, Oriented Skin Exam: Warm, Dry, Normal Color Course - Vital Signs Last Recorded V/S: Last Vital Signs Temp 98.4 F 07/28/20 12:00 Pulse 100 07/28/20 12:00 Resp 18 07/28/20 12:00 BP 111/74 07/28/20 12:00 Pulse Ox 98 07/28/20 12:00 - Orders/Labs/Meds Orders: Active Orders 24 hr Category Date Time Status Peripheral IV Insertion Adult [OM.PC] Stat Oth 07/28/20 09:48 Ordered Labs: Laboratory Tests 07/28/20 07/28/20 Range/Units 10:00 10:00 WBC 7.79 (3.98-10.04) K/mm3 RBC 4.47 (3.98-5.22) M/mm3 Hgb 12.5 (11.2-15.7) gm/dl Hct 38.9 (34.1-44.9) % MCV 87.0 (79.4-94.8) fl MCH 28.0 (25.6-32.2) pg MCHC 32.1 L (32.2-35.5) g/dl RDW Std Deviation 45.8 (36.4-46.3) fL Plt Count 461 H D (182-369) K/mm3 MPV 9.4 (9.4-12.3) fl Neut % (Auto) 52.3 (34.0-71.1) % Lymph % (Auto) 38.8 (19.3-51.7) % [place] % (Auto) 6.8 (4.7-12.5) % Eos % (Auto) 1.4 (0.7-5.8) Baso % (Auto) 0.4 (0.1-1.2) % Neut # (Auto) 4.08 (1.56-6.13) K/mm3 Lymph # (Auto) 3.02 (1.18-3.74) K/mm3 [place] # (Auto) 0.53 H (0.24-0.36) K/mm3 Eos # (Auto) 0.11 (0.04-0.36) K/mm3 Baso # (Auto) 0.03 (0.01-0.08) K/mm3 Sodium 142 (136-145) mEq/L Potassium 3.7 (3.5-5.1) mEq/L Chloride 105 (98-107) mEq/L Carbon Dioxide 26 (21-32) mEq/L Anion Gap 14.7 (5-15) BUN 12 (7-18) mg/dL Creatinine 0.9 (0.55-1.02) mg/dL Est Cr Clr Drug Dosing 82.51 mL/min Estimated GFR (MDRD) > 60 (>60) mL/min BUN/Creatinine Ratio 13.3 L (14-18) Glucose 84 (74-106) mg/dL Calcium 9.2 (8.5-10.1) mg/dL Total Bilirubin 0.5 (0.2-1.0) mg/dL AST 50 H (15-37) U/L ALT 126 H (14-59) U/L Alkaline Phosphatase 106 (46-116) U/L Total Protein 7.2 (6.4-8.2) g/dl Albumin 3.6 (3.4-5.0) g/dl Globulin 3.6 gm/dL Albumin/Globulin Ratio 1.0 (1-2) Lipase 94 (73-393) U/L Meds: Medications Discontinued Medications Generic Name Dose Route Start Last Admin Trade Name Maxine PRN Reason Stop Dose Admin Sodium Chloride 1,000 mls @ 999 mls/hr 07/28/20 10:00 07/28/20 10:04 Normal Saline IV 999 mls/hr ONETIME RODOLFO Administration Ondansetron HCl 4 mg 07/28/20 09:48 07/28/20 10:02 Zofran IVPUSH 07/28/20 09:49 4 mg ONETIME ONE Administration Sodium Chloride 10 ml 07/28/20 09:48 07/28/20 10:01 Saline Flush FLUSH 10 ml ASDIRECTED PRN Administration Keep Vein Open Departure - Departure Time of Disposition: 11:44 Disposition: Home, Self-Care 01 Condition: Fair Clinical Impression: Vomiting Qualifiers: Vomiting type: unspecified Vomiting Intractability: non-intractable Nausea presence: with nausea Qualified Code(s): R11.2 - Nausea with vomiting, u nspecified Diarrhea Qualifiers: Diarrhea type: unspecified type Qualified Code(s): R19.7 - Diarrhea, unspecified - Discharge Information Instructions: Diarrhea, Adult, Vomiting, Adult Referrals: Lyla Rojas PA-C [Primary Care Provider] - Forms: ED Department Discharge Additional Instructions: Clear liquids until later this afternoon, than very careful bland diet as tolerated. Zofran as previously prescribed if needed for further nausea or vomiting. Sepsis Event Note (ED) - Evaluation Sepsis Screening Result: No Definite Risk - My Orders Last 24 Hours: My Active Orders 07/28/20 09:48 Peripheral IV Insertion Adult [OM.PC] Stat - Assessment/Plan Last 24 Hours: My Active Orders 07/28/20 09:48 Peripheral IV Insertion Adult [OM.PC] Stat
== END 2020-07-28 12:05 | disposition home or self-care (01) ==
LOC: JD.ED 08:53
DX: R11.2 Nausea with vomiting, unspecified (principal); R19.7 Diarrhea, unspecified; J45.909 Unspecified asthma, uncomplicated; R56.9 Unspecified convulsions; E66.9 Obesity, unspecified; Z68.41 Body mass index [BMI] 40.0-44.9, adult; Z91.048 Other nonmedicinal substance allergy status; Z88.4 Allergy status to anesthetic agent; Z91.041 Radiographic dye allergy status; Z91.040 Latex allergy status; Z88.5 Allergy status to narcotic agent; Z88.8 Allergy status to other drugs, medicaments and biological substances; Z91.013 Allergy to seafood
CPT/HCPCS: 36415; 80053; 83690; 85025; 96374; 99284; J2405; J7030

== ENCOUNTER 2020-08-10 14:16 | Emergency (ER) | payer MEDICAID ==
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
[2020-08-10 18:43] LABS: ACETAMINOPHEN 0 ug/mL (10-30)
== END 2020-08-10 19:20 ==
LOC: JD.ED 14:16
DX: S51.812A Laceration without foreign body of left forearm, initial encounter (principal); S21.93XA Puncture wound without foreign body of unspecified part of thorax, initial encounter; M54.42 Lumbago with sciatica, left side; F31.77 Bipolar disorder, in partial remission, most recent episode mixed; J45.909 Unspecified asthma, uncomplicated; R56.9 Unspecified convulsions; E66.9 Obesity, unspecified; Z68.41 Body mass index [BMI] 40.0-44.9, adult; Z91.048 Other nonmedicinal substance allergy status; Z88.4 Allergy status to anesthetic agent; Z91.040 Latex allergy status; Z88.5 Allergy status to narcotic agent; Z91.013 Allergy to seafood; Z88.8 Allergy status to other drugs, medicaments and biological substances; Z79.899 Other long term (current) drug therapy; X78.1XXA Intentional self-harm by knife, initial encounter; Z20.822 Contact with and (suspected) exposure to COVID-19
CPT/HCPCS: 36415; 80053; 80143; 80179; 80306; 80307; 84443; 85025; 99285; U0002

== ENCOUNTER 2020-10-14 22:35 | Emergency (ER) | payer MEDICAID ==
--- NOTE | 2020-10-14 23:09 | EDM.PDOC ---
ED HPI GENERAL MEDICAL PROBLEM - General Chief Complaint: General Stated Complaint: [facility] Time Seen by Provider: 10/14/20 22:45 Source of Information: Reports: Patient History Limitations: Reports: No Limitations - History of Present Illness INITIAL COMMENTS - FREE TEXT/NARRATIVE: Ms. Perez is a pleasant 25-year-old woman who is now brought to the ED by EMS over concern about edema to her face, upper extremities, and lower extremities for the past 6 days. No other symptoms, such as dyspnea, cough, or wheezing. She is unable to say what, precisely, precipitated her coming to the ED tonight, other than to say that she attempted to contact her PCP Boyd evening, without success. She is not on steroids or a calcium channel santhosh. No prior history of edema. The patient states that she took some ibuprofen and Percocet to try to reduce her edema, which did not help. The patient states that she has a history of autoimmune hepatitis, but when questioned about that, she states that her LFTs are elevated, but she has not seen a Staging Technician or undergone a liver biopsy. No treatment for the elevated LFTs has been given so far. The patient also states that she has a history of lupus, but, again, no formal diagnosis has been made, and no treatment given thus far. She states that she is trying to get in to see a Hand Sample Maker. Here in the ED, the patient's initial BP is found to be modestly elevated at 161/82, otherwise, she is hemodynamically stable, afebrile, saturating 100% on room air. She appears to be comfortable, in no acute distress. Prior to 6 days ago, the patient denies having a recent fever, chills, sore throat, ear pain, nasal or sinus congestion, cough, dyspnea, chest pain, palpitations, nausea, vomiting, constipation, diarrhea, abdominal pain, urinary symptoms, recent weight gain or weight loss, recent bloody bowel movements or black bowel movements, recent joint aches, headaches, or rashes. The patient's PCP is BRENDA Zuniga. Her Psychiatrist is Dr. Kassi Aranda. Her Surgeon is Dr. Daphney Sanford. Generalized Pain Score (Numeric/FACES): 10 - Related Data Allergies Allergy/AdvReac Type Severity Reaction Status Date / Time adhesive Allergy Severe Blisters Verified 10/14/20 22:37 benzocaine Allergy Severe Blisters Verified 10/14/20 22:37 Iodinated Contrast Media Allergy Severe Cannot Verified 10/14/20 22:37 Remember latex Allergy Severe Hives Verified 10/14/20 22:37 morphine Allergy Severe Cannot Verified 10/14/20 22:37 Remember hydrocodone [From Vicodin] AdvReac Severe Vomiting Verified 10/14/20 22:37 iodine AdvReac Severe Vomiting Verified 10/14/20 22:37 promethazine [From Phenergan] AdvReac Severe Seizure Verified 10/14/20 22:37 shellfish derived AdvReac Severe Decreased Verified 10/14/20 22:37 Urine Output nsaids AdvReac Severe stoamch Uncoded 08/10/20 14:38 issues Home Meds: Home Meds Pantoprazole Sodium [Protonix] 40 mg PO DAILY 07/17/20 [History] Past Medical History Gastrointestinal History: Reports: Hemorrhoids, PUD Psychiatric History: Reports: Anxiety, Bipolar, Depression, Psych Hospitalization(s), PTSD, Suicide Attempt, Other (See Below) (Borderline personality disorder. Pseudoseizures. Fibromyalgia.) Endocrine/Metabolic History: Reports: Obesity/BMI 30+ - Past Surgical History HEENT Surgical History: Reports: Oral Surgery (dental extractions) GI Surgical History: Reports: Cholecystectomy (2010 or 2011), Colonoscopy (x around 4), EGD (x around 4), Other (See Below) (Open hemorrhoidectomy 07/18/2020) Female Surgical History: Reports: Section (x 1) Social & Family History - Tobacco Use Tobacco Use Status *Q: Former Tobacco User Tobacco Use Within Last Twelve Months: Vaping (THC x 2019) Years of Tobacco use: 13 Packs/Tins Daily: 0.5 Packs/Tins Daily Comment: Quit Feb 2020 - Caffeine Use Caffeine Use: Reports: Energy Drinks - Alcohol Use Alcohol Use History: No - Recreational Drug Use Recreational Drug Use: Yes Drug Use in Last 12 Months: Yes Recreational Drug Type: Reports: Marijuana/Hashish (smokes near-daily) - Living Situation & Occupation Living situation: Reports: Single, with Significant Other (Fianc), with Family (Son + grandfather) Occupation: Unemployed ED ROS GENERAL - Review of Systems Review Of Systems: Comprehensive ROS is negative, except as noted in HPI. ED EXAM, GENERAL - Physical Exam Exam: See Below Exam Limited By: No Limitations General Appearance: Alert, WD/WN, No Apparent Distress Eye Exam: Bilateral Eye: EOMI, Normal Inspection Ears: Normal External Exam, Hearing Grossly Normal Nose: Normal Inspection Throat/Mouth: Normal Inspection, Normal Lips, Normal Voice, No Airway Compromise Head: Atraumatic, Normocephalic (no noticeable edema or swelling) Neck: Normal Inspection, Supple, Non-Tender, Full Range of Motion. No: Lymphadenopathy (L), Lymphadenopathy (R) Respiratory/Chest: No Respiratory Distress, Lungs Clear, Normal Breath Sounds, No Accessory Muscle Use Cardiovascular: Normal Peripheral Pulses, Regular Rate, Rhythm, No Gallop, No JVD, No Murmur, No Rub Peripheral Pulses: 3+: Radial (L), Radial (R) GI/Abdominal: Normal Bowel Sounds, Soft, Non-Tender, No Organomegaly, No Distention, No Abnormal Bruit, No Mass Back Exam: Normal Inspection, Full Range of Motion, NT Extremities: Normal Inspection, Normal Range of Motion, Normal Capillary Refill, Other (No appreciable upper or lower extremity edema) Neurological: Alert, Oriented, Normal Cognition, No Motor/Sensory Deficits Psychiatric: Normal Affect Skin Exam: Warm, Dry, Intact, Normal Color, No Rash Course - Vital Signs Last Recorded V/S: Last Vital Signs Temp 35.9 C L 10/14/20 22:38 Pulse 86 10/14/20 22:38 Resp 18 10/14/20 22:38 BP 161/82 H 10/14/20 22:38 Pulse Ox 100 10/14/20 22:38 - Re-Assessments/Exams Free Text/Narrative Re-Assessment/Exam: 10/14/20 23:04 As above, the patient reports that she has had some edema to her face, arms, and lower extremities for the past 6 days, however, on examination, I find no pitting edema anywhere. Her oxygen saturation is 100% on room air, essentially eliminating the possibility of pulmonary edema. At this time, I am not recommending any treatment, such as a diuretic, instead, I recommended that she follow-up with her PCP tomorrow. The patient said that she could. Departure - Departure Time of Disposition: 23:05 Disposition: Home, Self-Care 01 Condition: Good Clinical Impression: Concern with appearance - Discharge Information *PRESCRIPTION DRUG MONITORING PROGRAM REVIEWED*: Not Applicable *COPY OF PRESCRIPTION DRUG MONITORING REPORT IN PATIENT CHANDAN: Not Applicable Referrals: Lyla Rojas PA-C [Primary Care Provider] - Kassi Aranda MD [Ordering Only Provider] - Daphney Sanford MD [Physician] - Forms: ED Department Discharge Additional Instructions: You were seen in the emergency room over concern of swelling to your face, arms, and lower extremities for the past 6 days. On examination in the ER, no significant edema was found. We recommend that you follow-up with your PCP, BRENDA Zuniga, for further evaluation. If any other problems, please do not hesitate to return to the ER. Sepsis Event Note (ED) - Evaluation Sepsis Screening Result: No Definite Risk - Focused Exam Vital Signs: Vital Signs Temp Pulse Resp BP Pulse Ox 10/14/20 22:38 35.9 C L 86 18 161/82 H 100
== END 2020-10-14 23:15 | disposition home or self-care (01) ==
LOC: JD.ED 22:35
DX: Z03.89 Encounter for observation for other suspected diseases and conditions ruled out (principal); E66.9 Obesity, unspecified; Z87.891 Personal history of nicotine dependence; Z68.34 Body mass index [BMI] 34.0-34.9, adult; Z91.048 Other nonmedicinal substance allergy status; Z88.4 Allergy status to anesthetic agent; Z91.041 Radiographic dye allergy status; Z91.040 Latex allergy status; Z88.5 Allergy status to narcotic agent; Z91.013 Allergy to seafood; Z88.8 Allergy status to other drugs, medicaments and biological substances; Z79.899 Other long term (current) drug therapy
CPT/HCPCS: 99283

== ENCOUNTER 2020-12-10 10:02 | Emergency (ER) | payer MEDICAID ==
--- NOTE | 2020-12-10 10:34 | EDM.PDOC ---
ED HPI GENERAL MEDICAL PROBLEM - General Chief Complaint: Back Pain or Injury Stated Complaint: BACK PAIN Time Seen by Provider: 12/10/20 10:33 Source of Information: Reports: Patient, RN Notes Reviewed - History of Present Illness INITIAL COMMENTS - FREE TEXT/NARRATIVE: 25 yr old female comes in with severe low back pain. Hx of chronic back pain for many yrs despite her young age. Had injection low back at pain clinic 5 days ago. Did some jumping/dancing with her daughter yesterday and now severe pain low mid back radiating down L leg with "numbness of both feet". Pain is worse with motion. Back Pain Score (Numeric/FACES): 10 - Related Data Allergies Allergy/AdvReac Type Severity Reaction Status Date / Time adhesive Allergy Severe Blisters Verified 12/10/20 10:17 benzocaine Allergy Severe Blisters Verified 12/10/20 10:17 Iodinated Contrast Media Allergy Severe Cannot Verified 12/10/20 10:17 Remember latex Allergy Severe Hives Verified 12/10/20 10:17 morphine Allergy Severe Cannot Verified 12/10/20 10:17 Remember hydrocodone [From Vicodin] AdvReac Severe Vomiting Verified 12/10/20 10:17 iodine AdvReac Severe Vomiting Verified 12/10/20 10:17 promethazine [From Phenergan] AdvReac Severe Seizure Verified 12/10/20 10:17 shellfish derived AdvReac Severe Decreased Verified 12/10/20 10:17 Urine Output nsaids AdvReac Severe stoamch Uncoded 08/10/20 14:38 issues Home Meds: Home Meds Pantoprazole Sodium [Protonix] 40 mg PO DAILY 07/17/20 [History] Cyclobenzaprine [Flexeril] 10 mg PO BID PRN 12/10/20 [History] Lidocaine 5% [Lidoderm 5%] 700 mg TOP DAILY 12/10/20 [History] allopurinoL [Zyloprim] 100 mg PO DAILY 12/10/20 [History] predniSONE [Prednisone] 50 mg PO DAILY #4 tablet 12/10/20 [Rx] Past Medical History - Past Health History Medical/Surgical History: Denies Medical/Surgical History Cardiovascular History: Reports: None Respiratory History: Reports: Asthma, Bronchitis, Recurrent Gastrointestinal History: Reports: Hemorrhoids, PUD Other Gastrointestinal History: stomach ulcer Genitourinary History: Reports: UTI, Recurrent TECHNICAL COORDINATOR History: Reports: Musculoskeletal History: Reports: Back Pain, Chronic, Fracture, Fibromyalgia Neurological History: Reports: Head Trauma, Seizure, Other (See Below) Other Neuro History: pseudo seizure Psychiatric History: Reports: Anxiety, Bipolar, Depression, Psych Hospitalization(s), PTSD, Suicide Attempt, Other (See Below) Other Psychiatric History: borderline personality disorder, manic bipolar Endocrine/Metabolic History: Reports: Obesity/BMI 30+ Hematologic History: Reports: Anemia Immunologic History: Reports: None Oncologic (Cancer) History: Reports: None Dermatologic History: Reports: Other (See Below) Other Dermatologic History: LUPUS--skin iritation - Infectious Disease History Infectious Disease History: Reports: None - Past Surgical History Head Surgeries/Procedures: Reports: None HEENT Surgical History: Reports: Oral Surgery Other HEENT Surgeries/Procedures: wisdom teeth, tooth removal. Cardiovascular Surgical History: Reports: None Respiratory Surgical History: Reports: None GI Surgical History: Reports: Cholecystectomy, Colonoscopy, EGD, Other (See Below) Other GI Surgeries/Procedures: hemorrhoid removal sx Female Surgical History: Reports: Section Endocrine Surgical History: Reports: None Neurological Surgical History: Reports: None Oncologic Surgical History: Reports: None Social & Family History - Family History Family Medical History: No Pertinent Family History - Tobacco Use Tobacco Use Status *Q: Former Tobacco User Used Tobacco, but Quit: Yes Month/Year Tobacco Last Used: 5 yrs - Caffeine Use Caffeine Use: Reports: None - Recreational Drug Use Recreational Drug Use: Yes Recreational Drug Type: Reports: Marijuana/Hashish - Living Situation & Occupation Living situation: Reports: Single, with Significant Other (Fianc), with Family (Son + grandfather) Occupation: Unemployed ED ROS GENERAL - Review of Systems Review Of Systems: See Below Constitutional: Denies: Fever, Chills HEENT: Reports: No Symptoms Respiratory: Denies: Shortness of Breath Cardiovascular: Denies: Chest Pain GI/Abdominal: Denies: Abdominal Pain, Nausea, Vomiting Musculoskeletal: Reports: Back Pain, Leg Pain Skin: Reports: No Symptoms Neurological: Reports: Numbness ED EXAM,LOWER BACK PAIN/INJURY - Physical Exam Exam: See Below General Appearance: Alert, Anxious, Moderate Distress Eye Exam: Bilateral Eye: PERRL Head: Atraumatic Neck: Supple Respiratory/Chest: No Respiratory Distress, Lungs Clear, Normal Breath Sounds Cardiovascular: Regular Rate, Rhythm Back Exam: Paraspinal Tenderness, Vertebral Tenderness (low mid back) Extremities: Normal Inspection Neurological: Alert, No Motor/Sensory Deficits Course - Vital Signs Last Recorded V/S: Last Vital Signs Temp 97.9 F 12/10/20 10:14 Pulse 84 12/10/20 10:14 Resp 18 12/10/20 10:14 BP 145/98 H 12/10/20 10:14 Pulse Ox 98 12/10/20 10:14 - Orders/Labs/Meds Meds: Medications Discontinued Medications Generic Name Dose Route Start Last Admin Trade Name Maxine PRN Reason Stop Dose Admin Ketorolac Tromethamine 60 mg 12/10/20 10:43 12/10/20 11:01 Ketorolac 60 Mg/2 Ml Sdv IM 12/10/20 10:44 60 mg ONETIME ONE Administration Oxycodone/Acetaminophen 1 tab 12/10/20 10:43 12/10/20 11:01 Acetaminophen/Oxycodone 325-5 Mg Tab PO 12/10/20 10:44 1 tab ONETIME ONE Administration Prednisone 40 mg 12/10/20 10:43 12/10/20 11:02 Prednisone 20 Mg Tab PO 12/10/20 10:44 40 mg ONETIME ONE Administration - Re-Assessments/Exams Free Text/Narrative Re-Assessment/Exam: 12/10/20 10:57 Have given torodol 60 mg IM, prednisone 40 mg PO. Her "ansaid allergy is gastric irritation". She is anxious, weeping, appearance of very uncomfortable, will give one oral percocet at this time. Will have her continue on prednisone 50 mg for the next 4 days. Departure - Departure Time of Disposition: 10:55 Disposition: Home, Self-Care 01 Condition: Fair Clinical Impression: Back pain Qualifiers: Back pain location: low back pain Chronicity: acute Back pain laterality: midline Sciatica presence: with sciatica Sciatica laterality: sciatica of left side Qualified Code(s): M54.42 - Lumbago with sciatica, left side - Discharge Information Prescriptions: predniSONE [Prednisone] 50 mg PO DAILY #4 tablet Instructions: Chronic Back Pain, [id number] Referrals: Lyla Rojas PA-C [Primary Care Provider] - Forms: ED Department Discharge, ED Return to Work/School Form Additional Instructions: Rest back, no heavy lifting. Alternate Ice and heat as needed. Continue current meds. Prednisone daily for the next 4 days. You may also take tylenol up to 3 times daily. Prescription for prednisone has been sent to [facility]. Follow up with your provider as needed. Sepsis Event Note (ED) - Evaluation Sepsis Screening Result: No Definite Risk - Focused Exam Vital Signs: Vital Signs Temp Pulse Resp BP Pulse Ox 12/10/20 10:14 97.9 F 84 18 145/98 H 98
[2020-12-10] MEDS ORDERED: predniSONE 20 MG Tab PO ONE (10:43)
[2020-12-10] MEDS ORDERED: Acetaminophen/oxyCODONE 325-5 MG Tab PO ONE (10:43)
[2020-12-10] MEDS ORDERED: Ketorolac 60 MG/2 ML SDV IM ONE (10:43)
== END 2020-12-10 11:22 | disposition home or self-care (01) ==
LOC: JD.ED 10:02
DX: M54.42 Lumbago with sciatica, left side (principal); J45.909 Unspecified asthma, uncomplicated; E66.9 Obesity, unspecified; Z68.42 Body mass index [BMI] 45.0-49.9, adult; Z87.891 Personal history of nicotine dependence; Z88.8 Allergy status to other drugs, medicaments and biological substances; Z91.041 Radiographic dye allergy status; Z91.040 Latex allergy status; Z88.5 Allergy status to narcotic agent; Z91.013 Allergy to seafood; Z79.899 Other long term (current) drug therapy
CPT/HCPCS: 96372; 99283; A9270; J1885; J7512

== ENCOUNTER 2021-10-13 15:45 | Emergency (ER) | payer MEDICAID ==
[2021-10-13] MEDS ORDERED: Lidocaine 1% with EPINEPHrine 1:100,000 20 ML MDV INJECT ONE (16:51)
[2021-10-13] MEDS ORDERED: Ondansetron 4 MG Tab.DIS PO ONE (16:51)
== END 2021-10-13 18:15 | disposition home or self-care (01) ==
LOC: JD.ED 15:45
DX: S51.811A Laceration without foreign body of right forearm, initial encounter (principal); E66.9 Obesity, unspecified; Z91.040 Latex allergy status; Z91.048 Other nonmedicinal substance allergy status; Z88.8 Allergy status to other drugs, medicaments and biological substances; Z88.5 Allergy status to narcotic agent; Z68.42 Body mass index [BMI] 45.0-49.9, adult; W26.0XXA Contact with knife, initial encounter
CPT/HCPCS: 12002; 99282; A9270

== ENCOUNTER 2022-01-21 13:54 | Emergency (ER) | payer MEDICAID ==
[2022-01-21] MEDS ORDERED: Sodium Chloride 0.9% 1,000 ML IV ONE (15:08)
[2022-01-21] MEDS ORDERED: Ondansetron 4 MG/2 ML SDV IVPUSH ONE (15:08)
[2022-01-21] MEDS ORDERED: Loperamide 2 MG Cap PO ONE (15:08)
[2022-01-21] MEDS ORDERED: Sodium Chloride 0.9% 10 ML Syringe FLUSH PRN (15:08)
== END 2022-01-21 17:30 | disposition home or self-care (01) ==
LOC: JD.ED 13:54
DX: K52.9 Noninfective gastroenteritis and colitis, unspecified (principal); R11.2 Nausea with vomiting, unspecified; E66.9 Obesity, unspecified; Z86.16 Personal history of COVID-19; Z91.048 Other nonmedicinal substance allergy status; Z88.4 Allergy status to anesthetic agent; Z91.040 Latex allergy status; Z88.5 Allergy status to narcotic agent; Z91.041 Radiographic dye allergy status; Z88.8 Allergy status to other drugs, medicaments and biological substances; Z68.41 Body mass index [BMI] 40.0-44.9, adult
CPT/HCPCS: 36415; 80053; 85025; 96361; 96374; 99284; A9270; J2405; J3490; J7030; 99283

== ENCOUNTER 2022-04-13 19:32 | Emergency (ER) | payer MEDICAID ==
[2022-04-13 21:06] LABS: CORONAVIRUS COVID-19 NAA NEGATIVE (NEGATIVE)
== END 2022-04-13 22:05 | disposition home or self-care (01) ==
LOC: JD.ED 19:32
DX: R50.9 Fever, unspecified (principal); J45.909 Unspecified asthma, uncomplicated; M79.7 Fibromyalgia; E66.9 Obesity, unspecified; Z87.891 Personal history of nicotine dependence; Z91.048 Other nonmedicinal substance allergy status; Z91.040 Latex allergy status; Z91.041 Radiographic dye allergy status; Z88.5 Allergy status to narcotic agent; Z88.8 Allergy status to other drugs, medicaments and biological substances; Z88.6 Allergy status to analgesic agent; Z91.030 Bee allergy status; Z79.899 Other long term (current) drug therapy; Z98.890 Other specified postprocedural states; Z20.822 Contact with and (suspected) exposure to COVID-19
CPT/HCPCS: 0240U; 36415; 81001; 85025; 99283